=== PATIENT | male | born 1965 | race Caucasian/White ===

== ENCOUNTER 2024-02-13 11:34 | Observation (INO) ==
[2024-02-13 12:17] LABS: Basophils # (auto) 0.05 K/uL (0.00-0.20); Basophils % (auto) 0.6 %; Eosinophils # (auto) 0.09 K/uL (0.00-0.50); Eosinophils % (auto) 1.1 %; Hematocrit (blood only) 48.3 % (42.0-52.0); Hemoglobin 16.5 g/dl (14.0-18.0); Immature Granulocytes # (auto) 0.04 K/uL (0.01-0.20); Immature Granulocytes % (auto) 0.5 %; Lymphocytes # (auto) 1.01 K/uL (1.20-3.40); Lymphocytes % (auto) 12.3 %; Mean Corpuscular Hemoglobin 29.6 pg (25.0-34.0); Mean Corpuscular Hgb Conc 34.2 g/dL (32.0-36.0); Mean Corpuscular Volume 86.7 fL (80.0-100.0); Mean Platelet Volume 12.6 fL (9.4-12.4); Monocytes # (auto) 0.67 K/uL (0.11-0.59); Monocytes % (auto) 8.2 %; Neutrophils # (auto) 6.34 K/uL (1.40-6.50); Neutrophils % (auto) 77.3 %; Platelet Count 179 K/uL (130-400); RDW Coefficient of Variation 12.6 % (11.5-14.5); RDW Standard Deviation 39.6 fL (36.4-46.3); Red Blood Count 5.57 M/uL (4.70-6.10)
[2024-02-13 12:32] LABS: Albumin Globulin Ratio 1.7 (0.9-2); BUN Creatinine Ratio 16.5 (10-20); Bilirubin,Total 0.9 mg/dl (0.2-1.0); Calcium 10.2 mg/dl (8.6-10.3); Creatinine Clr Calc Pharmacy 119.8 ml/min; Est GFR (African American) 106.5 ml/min; Est GFR (Non-African American) 91.9 ml/min
--- NOTE | 2024-02-13 12:41 | XRay Report ---
XR chest 1V not portable CLINICAL HISTORY: Chest pain, nonspecific COMPARISON STUDY: Chest radiograph January 27, 2024. FINDINGS: Lung volumes are normal. Lungs are clear. There is no pneumothorax or pleural effusion. Car diac size is stable. Mediastinal contours are normal. There is no evidence for pulmonary edema. IMPRESSION: No acute cardiopulmonary findings. ACT 112: Negative or not required by law. Electronically signed by: Frandy Mccrary M.D. 02/13/2024 12:40 PM
[2024-02-13 12:44] LABS: Partial Thromboplastin Time 29 Seconds (21-31); Prothrombin Time 10.9 Seconds (9.0-12.0)
--- NOTE | 2024-02-13 12:46 | Emergency Department Note ---
Impression & Plan Precordial chest pain, Hypertension, Elevated troponin ED Provider Note NAME: MAYLIN PINO AGE: 58 SEX: M : 1965 ARRIVES VIA: Walk-In INFORMANT: [Patient] ED PROVIDER(S): [Manoj Garner MD] CHIEF COMPLAINT: Chest pain HISTORY OF PRESENT ILLNESS: The patient is a 58-year-old male presents to the ER with central chest pain moving to his back. The pain has been present constantly for 2 hours. Patient states that he had a lot of coughing for a month or 2 (October into November). Ever since then, he has had some intermittent pain across the chest but it just seemed to come and go. Sometimes the pain is worse to take a breath, sometimes the pain is worse with movement, sometimes the pain is worse with activity/exertion. The patient states that today, the pain has been present for 2 hours and will not go away. It has been fairly severe today. It started as he was doing some outside work. He feels short of breath. The pain radiates to the back and may be his neck. He was sweating. He was concerned so he presents to the ER for evaluation. He states that he has had some issues with his breathing as well since . He tried an albuterol inhaler for a while which did not seem to help. He had pulmonary function testing done just 1 week ago. He does not know the results. Of note as per the [facility] records, pulmonary function testing from a week ago was essentially unremarkable. PMHx/PSHx/Social Hx: See Below PHYSICAL EXAM: GENERAL: Patient is in no acute distress. HEENT: No acute trauma, normocephalic atraumatic, mucous membranes moist, no nasal congestion. NECK: No stridor, no adenopathy, no meningismus, trachea is midline. LUNGS: Clear to auscultation bilaterally, no wheeze, no rhonchi, breath sounds equal. HEART: Without murmurs gallops or rubs, regular rate and rhythm. Chest: Tender across the anterior sternal chest wall. ABDOMEN: Soft, mildly tender in the epigastrium, no distention or peritonitis. EXTREMITIES: No cyanosis, full range of motion of all the joints without pain or difficulty. NEUROLOGIC: Oriented x 3, no acute motor or sensory deficits, no focal weakness. SKIN: No jaundice, no diaphoresis. DIFFERENTIAL DIAGNOSIS: Musculoskeletal pain, pneumonia, pneumothorax, mediastinal air, aortic dissection, PE, GA, among others. EMERGENCY DEPARTMENT PROCEDURES: MEDICAL DECISION MAKING: There is no leukocytosis or concerning anemia. There is a normal platelet count. No coagulopathy. No renal failure or significant electrolyte abnormality. There were a few subtle liver enzyme elevations however, the bilirubin was normal. ECG showed a normal sinus rhythm, no ST elevation. Repeat ECG showed the same findings. Cardiac troponin was somewhat elevated, this troponin elevation could be consistent with cardiac injury. Chest film does not show mediastinal widening, pneumonia or pneumothorax. Chest CT did not show PE or evidence for aortic dissection. The patient presents with chest pain which has been ongoing for sometime. He did have some reproducible chest pain with palpation consistent with musculoskeletal discomfort. The patient also complained of some exertional chest pain with some associated shortness of breath. He does carry cardiac risk factors. Patient was given oral aspirin, he was given nitroglycerin paste. He received IV morphine and IV Zofran. He was given IV Toradol. Patient feels improved with this treatment and his blood pressure has also improved. The patient presents with chest discomfort which has been ongoing for months. He is being worked up as an outpatient. With his worsening complaints today, with his troponin elevation, I do believe he requires hospitalization and further cardiac workup. I spoke with the patient and case management, the on-call hospitalist was consulted. Prior/Outside records/notes reviewed: Pulmonary function test results dictated on 02/12/2024 describing essentially normal lung function ECG per my interpretation: Indication was chest pain. The ECG shows a normal sinus rhythm with some sinus arrhythmia. The rate is 81. There is an inverted T wave in lead III. There is no acute ST elevation, no PVCs. Repeat ECG per my interpretation: Indication was chest pain. The ECG shows a normal sinus rhythm with a rate of 74. There is an inverted T wave in lead III. There is no acute ST elevation, no PVCs. The QTc is 439. Compared to the ECG from earlier today, there is no significant change. Continuous Cardiac Monitoring per my interpretation: An order was placed for continuous cardiac monitoring. The monitor shows a rate of 79 with normal sinus rhythm. Imaging/x-ray results per my interpretation: Chest x-ray does not show mediastinal widening, pneumonia or pneumothorax. Chronic Medical/Social conditions affecting care: Care/Management discussed with: Case management, the on-call hospitalist. Level of care consideration(s): After review of the information above and other included data: --I believe the patient requires escalation of care to admission DISPOSITION: Admission with cardiology consult Past Med/Surg History Medical History Hospital discharge follow-up History of COVID-19 approx 4 mo ago - [facility]; congestion, cough, sob, fatigue; c/o ongoing sob PONV (postoperative nausea and vomiting) Slow to wake up after anesthesia History of gout Osteoarthritis Fatty liver History of colon polyps [place] (hard of hearing) HTN (hypertension) History of pulmonary embolism >10 years ago - unk etiology Snores Hypertension Near syncope Left shoulder pain Surgical History History of arthroscopy of left knee History of arthroscopy of right knee History of colonoscopy Family History Father Bone cancer Myocardial infarction Mother History of knee surgery Grandfather (Paternal) Myocardial infarction Brother Skin cancer Other No family history of adverse response to anesthesia Denies family history of Ovarian cancer Prostate cancer Breast cancer Colorectal cancer Social History Smoking Status: Former smoker Tobacco Type: Cigarettes packs per day: 1; Second Hand Exposure: No; Do You Dip or Chew Tobacco: No; Hx Alcohol Use: No Hx Substance Use: No Preferred Language: Mohawk Communication Ability: Effective Visual Impairment: No Limitations Hearing Ability: Normal Drilling Engineer Required: No Beliefs That Will Affect Care: None marital status: Current Living Situation: Spouse current occupational status: employed How many Children do You have: 3 Other Information That Helps Us Care for You: No Feels Safe at Home: Yes Safety Concerns: Feels Safe At This Time Childhood Exposure to Second-Hand Smoke: No caffeine: Yes Dental Care, Regularly: Yes Seatbelt Use: always Sunscreen Use: No Assistive Devices: None Allergies Allergies Allergy/AdvReac Type Severity Reaction Status Date / Time nifedipine Allergy Severe Flushing Verified 02/10/24 15:22 lisinopril AdvReac Mild Cough Verified 01/27/24 11:37 Home Meds Home Medications Medication Instructions Recorded Confirmed aspirin 81 mg tablet,delayed 81 mg PO DAILY 10/02/22 02/13/24 release (Adult Low Dose Aspirin) ibuprofen See Rx Instructions .Route 02/13/24 02/13/24 .COMPLEX PRN Pain losartan 100 1 tab PO HS 02/13/24 02/13/24 mg-hydrochlorothiazide 25 mg tablet Results & Data (ED) Vital Signs Vital Signs - 24 hr 02/13/24 11:43 02/13/24 11:43 02/13/24 12:22 Temperature 36.7 C Temperature Source Temporal Artery Scan Pulse Rate 92 H Pulse Rate [Apical] Pulse Rhythm [Apical] Pulse Strength [Apical] Respiratory Rate 19 Respiratory Effort / Characteristics SOB on Exertion Respiratory Depth Respiratory Pattern Blood Pressure 142/107 H Blood Pressure [Right Arm] Blood Pressure Mean 118 Blood Pressure Mean [Right Arm] Blood Pressure Position [Right Arm] Pulse Oximetry 97 96 Oxygen Delivery Method Room Air Room Air Sepsis Recent Fever Within 48 Hours No Sepsis New/Unexplained Change in Mental Status N/A Sepsis Action Taken by Nursing No Action Required 02/13/24 12:22 02/13/24 12:27 02/13/24 14:43 Temperature Temperature Source Pulse Rate 79 Pulse Rate [Apical] 82 70 Pulse Rhythm [Apical] Regular Regular Pulse Strength [Apical] Normal Normal Respiratory Rate 17 17 Respiratory Effort / Characteristics Non-Labored Spontaneous Non-Labored Spontaneous Respiratory Depth Normal Normal Respiratory Pattern Regular Regular Blood Pressure Blood Pressure [Right Arm] 125/85 Blood Pressure Mean Blood Pressure Mean [Right Arm] 98 Blood Pressure Position [Right Arm] Semi-fowlers Pulse Oximetry 97 97 Oxygen Delivery Method Room Air Room Air Sepsis Recent Fever Within 48 Hours Sepsis New/Unexplained Change in Mental Status Sepsis Action Taken by [facility]dc Medications Current Medication List: was personally reviewed by me Laboratory Data Attestation: I reviewed the patient's lab results. 02/13/24 11:55 02/13/24 11:55 Lab Results 02/13/24 02/13/24 Range/Units 11:55 14:10 WBC 8.20 (4.8-10.8) K/ul RBC 5.57 (4.70-6.10) M/uL Hgb 16.5 (14.0-18.0) g/dl Hct 48.3 (42.0-52.0) % MCV 86.7 (80.0-100.0) fL MCH 29.6 (25.0-34.0) pg MCHC 34.2 (32.0-36.0) g/dL RDW Std Deviation 39.6 (36.4-46.3) fL RDW Coeff of Giorgi 12.6 (11.5-14.5) % Plt Count 179 (130-400) K/uL MPV 12.6 H (9.4-12.4) fL Immature Gran % (Auto) 0.5 % Neut % (Auto) 77.3 % Lymph % (Auto) 12.3 % [place] % (Auto) 8.2 % Eos % (Auto) 1.1 % Baso % (Auto) 0.6 % Neut # (Auto) 6.34 (1.40-6.50) K/uL Lymph # (Auto) 1.01 L (1.20-3.40) K/uL [place] # (Auto) 0.67 H (0.11-0.59) K/uL Eos # (Auto) 0.09 (0.00-0.50) K/uL Baso # (Auto) 0.05 (0.00-0.20) K/uL Immature Gran # (Auto) 0.04 (0.01-0.20) K/uL PT 10.9 (9.0-12.0) Seconds INR 1.0 (0.9-1.1) APTT 29 (21-31) Seconds PTT Ratio 1.0 Sodium 136 (136-145) mmol/L Potassium 4.0 (3.5-5.1) mmol/L Chloride 100 (98-107) mmol/L Carbon Dioxide 27 (21-32) mmol/L Anion Gap 9 (3-11) BUN 15 (6-23) mg/dl Creatinine 0.91 (0.6-1.4) mg/dl Est Cr Clr Drug Dosing 119.8 ml/min Est GFR ( Amer) 106.5 ml/min Est GFR (Non-Af Amer) 91.9 ml/min BUN/Creatinine Ratio 16.5 (10-20) Glucose 107 H (70-99(Fasting)) mg/dl Calcium 10.2 (8.6-10.3) mg/dl Magnesium 1.9 (1.7-2.4) mg/dl Total Bilirubin 0.9 (0.2-1.0) mg/dl AST 48 H (13-39) U/L ALT 101 H (7-52) U/L Alkaline Phosphatase 50 (34-104) U/L Troponin I High Sens 99.1 H* 553.1 H* D (0-20) pg/ml Total Protein 8.0 (6.0-8.3) gm/dl Albumin 5.0 (3.4-5.0) gm/dl Globulin 3.0 (2.5-4.0) gm/dl Albumin/Globulin Ratio 1.7 (0.9-2) Administered Medications Heparin Sodium/Dextrose (Heparin Sodium/Dextrose) 25,000 units in 500 mls @ 20 mls/hr IV .Q24H [facility]; Protocol Stop: 03/14/24 15:14 Last Admin: 02/13/24 15:54 Dose: 1,000 units/hr, 20 mls/hr Documented By: SHERRIE Co-signed By: JONO Discontinued Medications Aspirin (Aspirin Chew 324 Mg) 324 mg PO NOW STA Stop: 02/13/24 12:51 Last Admin: 02/13/24 12:56 Dose: 324 mg Documented By: MANI Heparin Sodium (Porcine) (Heparin Ivp From [facility] Protocol (With Bolus)) 4,000 units IV NOW ONE Stop: 02/13/24 15:46 Last Admin: 02/13/24 15:56 Dose: 4,000 units Documented By: SHERRIE Co-signed By: JONO Heparin Sodium/Dextrose (Heparin Iv Adult Wt-Based Low-Dose W/ Initial Bolus Protocol) 1 each IV NOW STA; Protocol Stop: 02/13/24 14:52 Last Admin: 02/13/24 15:56 Dose: 1 each Documented By: SHERRIE Magnesium Sulfate/Dextrose (Magnesium Sulfate / D5w) 1 gm in 100 mls @ 50 mls/hr IV ONE ONE Stop: 02/13/24 17:58 Last Admin: 02/13/24 18:28 Dose: 50 mls/hr Documented By: KACI Ioversol (Optiray 320 125ml) 119 ml IV ONCE ONE Stop: 02/13/24 13:04 Last Admin: 02/13/24 13:03 Dose: 119 ml Documented By: CHANCE Ketorolac Tromethamine (Ketorolac Tromethamine 15 Mg/Ml Vial) 10 mg IV NOW ONE Stop: 02/13/24 12:34 Last Admin: 02/13/24 12:48 Dose: 10 mg Documented By: MANI Morphine Sulfate (Morphine Sulfate 4 Mg/Ml 1 Ml Carp\Vial) 4 mg IV NOW STA Stop: 02/13/24 12:34 Last Admin: 02/13/24 12:48 Dose: 4 mg Documented By: MANI Nitroglycerin (Nitroglycerin 2% Ointment 30gm Tube) 1 inch EXT NOW STA Stop: 02/13/24 12:51 Last Admin: 02/13/24 12:54 Dose: 1 inch Documented By: MANI Ondansetron HCl (Ondansetron Inj 2 Mg/Ml 2 Ml Vial) 4 mg IV NOW STA Stop: 02/13/24 12:34 Last Admin: 02/13/24 12:48 Dose: 4 mg Documented By: MANI Imaging Data Radiologist's Impression: Chest X-Ray 02/13/24 11:48 XR chest 1V not portable CLINICAL HISTORY: Chest pain, nonspecific COMPARISON STUDY: Chest radiograph January 27, 2024. FINDINGS: Lung volumes are normal. Lungs are clear. There is no pneumothorax or pleural effusion. Cardiac size is stable. Mediastinal contours are normal. There is no evidence for pulmonary edema. IMPRESSION: No acute cardiopulmonary findings. ACT 112: Negative or not required by law. Electronically signed by: Frandy Mccrary M.D. 02/13/2024 12:40 PM Chest CTA 02/13/24 12:33 CT ANGIOGRAPHY OF THE CHEST DISSECTION PROTOCOL CLINICAL HISTORY: Chest pain radiating to back. Evaluate for aortic dissection. COMPARISON STUDY: Chest radiographs January 19, 2024 and February 13, 2024. TECHNIQUE: Before and following the IV administration of 119 mL of Optiray, helical axial images of the chest were obtained. Maximal intensity projections and sagittal and coronal reformats were viewed on an independent 3D workstation. IV contrast was administered without complication. Automated exposure control was utilized for the study. A dose lowering technique was utilized adhering to the principles of ALARA. CT DOSE: 1989.37 mGy.cm FINDINGS: The caliber of the thoracic aorta is normal. There is no intramural hematoma or thoracic aortic dissection. There is extensive coronary artery calcification. There is no pericardial effusion. Borderline cardiomegaly. No pneumothorax or pleural effusion is present. There is no consolidation to suggest pneumonia. Multiple solid noncalcified pulmonary nodules are noted. The largest is a 7 mm left lower lobe nodule on image 147 of 253 and a 7 mm subpleural right middle lobe nodule on image 166. No acute fractures within the bony thorax are noted. Visualized portions of the upper abdomen are unremarkable. IMPRESSION: 1. No thoracic aortic dissection. No pulmonary emboli. No acute intrathoracic findings. 3. Mild cardiomegaly. Extensive coronary artery calcification. 3. Several noncalcified pulmonary nodules measuring up to 7 mm. These are likely benign. A follow up chest CT in 6 months to ensure stability is recommended. ACT 112: Negative or not required by law. Electronically signed by: Frandy Mccrary M.D. 02/13/2024 1:19 PM Discharge Plan Visit Data Chief Complaint: Chest Pain Stated Complaint: CHEST PAIN, LUNG PAIN, NECK PAIN ED Provider: Manoj Garner Discharge Problem: Precordial chest pain, Hypertension, Elevated troponin Patient Disposition: Admitted As Inpatient Condition: Fair Discharge Instructions Interventions: ED Discharge Assessment Last Done: 02/13/24 16:16 Discharge Problem: Hypertension Qualifiers: Hypertension type: unspecified Qualified Code(s): I10 - Essential (primary) hypertension
[2024-02-13] MEDS: ONDANSETRON INJ 2 MG/ML 2 ML VIAL IV STA (12:48)
[2024-02-13] MEDS: KETOROLAC TROMETHAMINE 15 MG/ML VIAL IV ONE (12:48)
[2024-02-13] MEDS: MoRPHine SULFATE 4 MG/ML 1 ML CARP\\VIAL IV STA (12:48)
[2024-02-13 12:49] LABS: Troponin I High Sensitivity 99.1 pg/ml (0-20)
[2024-02-13] MEDS: NITROGLYCERIN 2% OINTMENT 30GM TUBE EXT STA (12:54)
[2024-02-13] MEDS: ASPIRIN CHEW 324 MG PO STA (12:56)
[2024-02-13] MEDS: OPTIRAY 320 125ml IV ONE (13:03)
--- NOTE | 2024-02-13 13:21 | CT Scan Report ---
CT ANGIOGRAPHY OF THE CHEST DISSECTION PROTOCOL CLINICAL HISTORY: Chest pain radiating to back. Evaluate for aortic dissection. COMPARISON STUDY: Chest radiographs January 19, 2024 and February 13, 2024. TECHNIQUE: Before and following the IV administration of 119 mL of Optiray, helical axial images of t he chest were obtained. Maximal intensity projections and sagittal and coronal reformats were viewed on an independent 3D workstation. IV contrast was administered without complication. Automated exp osure control was utilized for the study. A dose lowering technique was utilized adhering to the [facility] [place]. CT DOSE: 1989.37 mGy.cm FINDINGS: The caliber of the thoracic aorta is normal. There is no intramural hematoma or thoracic a ortic dissection. There is extensive coronary artery calcification. There is no pericardial effusion. Borderline cardiomegaly. No pneumothorax or pleural effusion is present. There is no consolidation t o suggest pneumonia. Multiple solid noncalcified pulmonary nodules are noted. The largest is a 7 mm l eft lower lobe nodule on image 147 of 253 and a 7 mm subpleural right middle lobe nodule on image 166 . No acute fractures within the bony thorax are noted. Visualized portions of the upper abdomen are u nremarkable. IMPRESSION: 1. No thoracic aortic dissection. No pulmonary emboli. No acute intrathoracic findings. 3. Mild cardiomegaly. Extensive coronary artery calcification. 3. Several noncalcified pulmonary nodules measuring up to 7 mm. These are likely benign. A follow up chest CT in 6 months to ensure stability is recommended. ACT 112: Negative or not required by law. Electronically signed by: Frandy Mccrary M.D. 02/13/2024 1:19 PM
--- NOTE | 2024-02-13 13:41 | Electrocardiogram Report ---
Test Reason : Blood Pressure : / mmHG Vent. Rate : 081 BPM Atrial Rate : 081 BPM P-R Int : 154 ms QRS Dur : 106 ms QT Int : 378 ms P-R-T Axes : 053 -36 001 degrees QTc Int : 439 ms Normal sinus rhythm with sinus arrhythmia Left axis deviation Abnormal ECG When compared with ECG of 05-NOV-2011 06:55, No significant change was found Confirmed by Aryan Walker ([id number]) on 02/13/2024 1:41:12 PM Referred By: Confirmed By:Aryan Walker
--- NOTE | 2024-02-13 14:07 | History & Physical Report ---
Date of Service February 13, 2024 History of Present Illness Primary Care Provider: Lo Jose MD Allergies Allergy/AdvReac Type Severity Reaction Status Date / Time nifedipine Allergy Severe Flushing Verified 02/10/24 15:22 lisinopril AdvReac Mild Cough Verified 01/27/24 11:37 Home Medications Medication Instructions Recorded Confirmed Type aspirin 81 mg tablet,delayed 81 mg PO DAILY 10/02/22 01/27/24 History release (Adult Low Dose Aspirin) losartan 100 mg tablet 100 mg PO QAM #90 tabs 02/11/23 01/27/24 Rx albuterol sulfate 90 mcg/actuation 2 puff inhalation Q6H PRN 11/13/23 01/27/24 Rx aerosol inhaler shortness of breath or wheezing #6.7 grams Past Med/Surg History Medical History (Updated 02/13/24 @ 14:[address] PA-C) Hospital discharge follow-up History of COVID-19 approx 4 mo ago - [facility] [place] [facility]; congestion, cough, sob, fatigue; c/o ongoing sob PONV (postoperative nausea and vomiting) Slow to wake up after anesthesia History of gout Osteoarthritis Fatty liver History of colon polyps [place] (hard of hearing) HTN (hypertension) History of pulmonary embolism >10 years ago - unk etiology Snores Hypertension Near syncope Left shoulder pain Surgical History History of arthroscopy of left knee History of arthroscopy of right knee History of colonoscopy Family History Father Bone cancer Myocardial infarction Mother History of knee surgery Grandfather (Paternal) Myocardial infarction Brother Skin cancer Other No family history of adverse response to anesthesia Denies family history of Ovarian cancer Prostate cancer Breast cancer Colorectal cancer Social History (Updated 01/27/24 @ 11:42 by Nima Betts) Smoking Status: Former smoker Tobacco Type: Cigarettes packs per day: 1; Second Hand Exposure: No; Do You Dip or Chew Tobacco: No; Hx Alcohol Use: Yes Hx Substance Use: No Preferred Language: Occitan Communication Ability: Effective Visual Impairment: No Limitations Hearing Ability: Normal Rv Repair Technician Required: No Beliefs That Will Affect Care: None marital status: Current Living Situation: Spouse current occupational status: employed How many Children do You have: 3 Feels Safe at Home: Yes Childhood Exposure to Second-Hand Smoke: No caffeine: Yes Dental Care, Regularly: Yes Seatbelt Use: always Sunscreen Use: No Assistive Devices: None Results & Data Results & Data Vital Signs (Past 12 Hours) Vital Signs Temp Pulse Pulse Resp BP Pulse Ox O2 Del Method 02/13/24 12:27 79 02/13/24 12:22 82 17 97 Room Air 02/13/24 12:22 96 Room Air 02/13/24 11:43 36.7 C 92 H 19 142/107 H 97 Room Air Supervising Physician Co-Signing Physician Notes Patient seen and examined, chart reviewed, case discussed with Ashu Lane and I agree with the assessment and plan as above except as otherwise noted Labs and images reviewed Deniz Johnson is a 58-year-old male who presents to the ER with chest pain radiating to his back. CTA shows no aortic dissection, no evidence of PE, mild cardiomegaly with extensive coronary calcifications. Noncalcified pulmonary nodules likely benign are noted but which will require 6-month follow-up. EKG on admission shows normal sinus rhythm with no territorial ST depression/elevations, no territorial T wave changes, and a concordant T wave inversion in lead III. Initial high sensitive troponin is 99.1. Chest x-ray is with no acute findings. Patient pain was onset approximately 2 hours prior to E R arrival. Previous this has had intermittent pain for around 2 months with some associated shortness of breath, pain today has been persistent and has not improved causing him to present to the ER. Deniz received aspirin full dose and nitro paste while in the ER. PG Care Time/CCT Total # of Minutes Spent Total Time Spent with Patient: Total time spent is greater than 50% in coordination of care (as documented) at patient's floor/unit and/or counseling patient: Coding
--- NOTE | 2024-02-13 14:09 | History & Physical Report ---
Date of Service February 13, 2024 Assessment & Plan (1) Chest pain: Plan: Ripping, substernal chest pain radiating to back, and worsening SOB that developed for 2-3 hours while working outside on 02/12 Hx of pulmonary embolism Chest CTA revealed no pulmonary emboli or thoracic aortic dissection; extensive coronary artery calcification Patient has a coronary CT scan scheduled in March 2024 for calcium score EKG revealed NSR at 81 bpm; QTc 439 ASA given in the ED Troponin elevated at 99-->553 on arrival Trend troponin q6h x 2 EKG as needed for chest pain Continuous telemetry monitoring Continue heparin IV Negative exercise stress echo for ischemia in June 2021 Cardiology consulted; probable catheterization on 02/13 or 02/14 Continue aspirin 81 mg daily Nitro 0.4 mg SL x 3 max doses as needed for recurrence of severe chest pain A.m. CBC, BMP, Mag, Fasting lipid panel (2) Shortness of breath: Plan: Intermittent SOB both at rest and with exertion Former tobacco cigarette smoker; 0.5 PPD for 10y; quit 12 years ago PFT results on 02/12/2024 revealed no obstructive lung dysfunction (3) Hypertension: Plan: Continue losartanHCTZ Patient did not tolerate nifedipine in the past (flushing/swelling); denies ever being tried on a beta-micheal (4) Sleep apnea: Plan: Did not tolerate CPAP Plan Disposition: Obs - Admit to PCU telemetry Full code AHA, low-sodium diet VTE PPx: Low-dose heparin with bolus started in the ED History of Present Illness Chief Complaint: Chest pain Primary Care Provider: Lo Jose MD Deniz is a 58-year-old male with PMH of HTN, sleep apnea, and plantar fasciitis. He presented for "ripping" sternal chest pain x 2-3 hours that developed while working outside on 02/12. Patient notes that he was dragging branches outside of discharge, when the pain came on gradually, but then became unbearable. Radiation to the left shoulder and jaw. Numbness and tingling down the left arm. Patient reports profuse sweating so bad that he "soaked his shirt". Became pale. He felt like his "chest cavity was breaking open". After sitting down, the pain eventually alleviated. Also alleviated by morphine and Nitro-Bid in the ED. Patient reports this has been an ongoing issue over the past couple months, and he is unable to tell if it is strictly at rest versus with exertion. He also notes that he has been having SOB both at rest and with exertion. Patient had PFTs done 1 week ago with results pending; former tobacco cigarette smoker but quit 12 years ago. Of note, the patient also endorses "burning with breathing", which he attributes to potential acid reflux. Worse when being out in the cold he was supposed to start on Pepcid but has not done so yet. Last stress test was 1 year ago. Patient follows with Dr. Umesh Lopez at [facility] cardiology. He reports that he has been taking his los artanHCTZ regularly, and that he was recently tried on nifedipine 60 mg starting on , but only took 2 days of it as it caused him to swell up and flushing. He also notes that he ran out of his aspirin 81 mg 2 days ago, and has not been taking it the past 2 days. No other change in medications. He was post to have a coronary CT scan for calcium score in March 2024. Family history of cardiac disease; father had SC and quadruple bypass in his 60s. No personal history of SC, or CVA, but he does report he had a PE in the past; unclear if it was provoked or unprovoked; not currently on blood thinners. Patient is hypertensive at 142/107 at time of admission; vitals otherwise stable. Chest pain-free at time of admission; not reproducible to palpation. ED course: Morphine 4 mg IV Toradol 10 mg IV Zofran 4 mg IV Aspirin 324 mg p.o. Nitro-Bid 2% 1 inch ROS: Patient endorses intermittent chest pain, numbness/tingling going down the left arm, tightness in jaw and left shoulder, dizziness/lightheadedness, blurry vision x 2 in the past month, pleuritic CP, productive cough and dry cough, hemoptysis (always while brushing teeth x 3-4 episodes), and nausea from pain. Patient denies fever, chills, night-sweats, [place], chest palpitations, abdominal pain, vomiting, diarrhea, urinary s/s, burning with urination, blood in the urine/stool, and N/T in legs. Allergies Allergy/AdvReac Type Severity Reaction Status Date / Time nifedipine Allergy Severe Flushing Verified 02/10/24 15:22 lisinopril AdvReac Mild Cough Verified 01/27/24 11:37 Home Medications Medication Instructions Recorded Confirmed Type aspirin 81 mg tablet,delayed 81 mg PO DAILY 10/02/22 02/13/24 History release (Adult Low Dose Aspirin) ibuprofen See Rx Instructions .Route 02/13/24 02/13/24 History .COMPLEX PRN Pain losartan 100 1 tab PO HS 02/13/24 02/13/24 History mg-hydrochlorothiazide 25 mg tablet Past Med/Surg History Medical History (Updated 02/13/24 @ 14:05 by FRED RestrepoC) Hospital discharge follow-up History of COVID-19 approx 4 mo ago - [facility]gent [facility] [place]; congestion, cough, sob, fatigue; c/o ongoing sob PONV (postoperative nausea and vomiting) Slow to wake up after anesthesia History of gout Osteoarthritis Fatty liver History of colon polyps [place] (hard of hearing) HTN (hypertension) History of pulmonary embolism >10 years ago - unk etiology Snores Hypertension Near syncope Left shoulder pain Surgical History History of arthroscopy of left knee History of arthroscopy of right knee History of colonoscopy Family History Father Bone cancer Myocardial infarction Mother History of knee surgery Grandfather (Paternal) Myocardial infarction Brother Skin cancer Other No family history of adverse response to anesthesia Denies family history of Ovarian cancer Prostate cancer Breast cancer Colorectal cancer Social History (Updated 01/27/24 @ 11:42 by Nima Betts) Smoking Status: Former smoker Tobacco Type: Cigarettes packs per day: 1; Second Hand Exposure: No; Do You Dip or Chew Tobacco: No; Hx Alcohol Use: Yes Hx Substance Use: No Preferred Language: Prydeinig Communication Ability: Effective Visual Impairment: No Limitations Hearing Ability: Normal Contact Lens Blocker Required: No Beliefs That Will Affect Care: None marital status: Current Living Situation: Spouse current occupational status: employed How many Children do You have: 3 Feels Safe at Home: Yes Childhood Exposure to Second-Hand Smoke: No caffeine: Yes Dental Care, Regularly: Yes Seatbelt Use: always Sunscreen Use: No Assistive Devices: None Review of Systems Review of Systems: See HPI above Physical Exam Physical Exam: General: no acute distress; pleasant affect; non-toxic appearing; well- nourished; cooperative HEENT: normocephalic, atraumatic; no scleral icterus; PERRLA; vision and hearing grossly intact Neck: supple; negative for JVD; no lymphadenopathy; trachea midline Skin: warm, dry without signs of tenting; no cyanosis; no rashes, bruising, lesions, or erythema noted on the abdomen, chest wall, or back CV: chest wall NTP; left-sided chest wall and upper back between shoulder blades NTP; RRR; S1/S2 normal; pulses intact and symmetric at radial, DP, and PT Lungs: no acute respiratory distress; symmetrical chest wall expansion; clear breath sounds across all lung laura w/o adventitious sounds; no wheezing ABD: Soft, NTP; BS present; no rebound/guarding MSK: no tics or fasciculations; no edema noted in the LEs b/l, nonerythematous Neuro: A&Ox3; normal mood and affect; fluent speech; no focal deficits; sensation grossly intact in the LEs b/l Results & Data Results & Data Vital Signs (Past 12 Hours) Vital Signs Temp Pulse Pulse Resp BP Pulse Ox O2 Del Method 02/13/24 12:27 79 02/13/24 12:22 82 17 97 Room Air 02/13/24 12:22 96 Room Air 02/13/24 11:43 36.7 C 92 H 19 142/107 H 97 Room Air Laboratory Results Abnormal lab results 02/13/24 Range/Units 11:55 MPV 12.6 H (9.4-12.4) fL Lymph # (Auto) 1.01 L (1.20-3.40) K/uL [place] # (Auto) 0.67 H (0.11-0.59) K/uL Glucose 107 H (70-99(Fasting)) mg/dl AST 48 H (13-39) U/L ALT 101 H (7-52) U/L Troponin I High Sens 99.1 H* (0-20) pg/ml Diagnostic Findings Chest X-Ray 02/13/24 11:48 XR chest 1V not portable CLINICAL HISTORY: Chest pain, nonspecific COMPARISON STUDY: Chest radiograph January 27, 2024. FINDINGS: Lung volumes are normal. Lungs are clear. There is no pneumothorax or pleural effusion. Cardiac size is stable. Mediastinal contours are normal. There is no evidence for pulmonary edema. IMPRESSION: No acute cardiopulmonary findings. ACT 112: Negative or not required by law. Electronically signed by: Frandy Mccrary M.D. 02/13/2024 12:40 PM Chest CTA 02/13/24 12:33 CT ANGIOGRAPHY OF THE CHEST DISSECTION PROTOCOL CLINICAL HISTORY: Chest pain radiating to back. Evaluate for aortic dissection. COMPARISON STUDY: Chest radiographs January 19, 2024 and February 13, 2024. TECHNIQUE: Before and following the IV administration of 119 mL of Optiray, helical axial images of the chest were obtained. Maximal intensity projections and sagittal and coronal reformats were viewed on an independent 3D workstation. IV contrast was administered without complication. Automated exposure control was utilized for the study. A dose lowering technique was utilized adhering to the principles of ALARA. CT DOSE: 1989.37 mGy.cm FINDINGS: The caliber of the thoracic aorta is normal. There is no intramural hematoma or thoracic aortic dissection. There is extensive coronary artery calcification. There is no pericardial effusion. Borderline cardiomegaly. No pneumothorax or pleural effusion is present. There is no consolidation to suggest pneumonia. Multiple solid noncalcified pulmonary nodules are noted. The largest is a 7 mm left lower lobe nodule on image 147 of 253 and a 7 mm subpleural right middle lobe nodule on image 166. No acute fractures within the bony thorax are noted. Visualized portions of the upper abdomen are unremarkable. IMPRESSION: 1. No thoracic aortic dissection. No pulmonary emboli. No acute intrathoracic findings. 3. Mild cardiomegaly. Extensive coronary artery calcification. 3. Several noncalcified pulmonary nodules measuring up to 7 mm. These are likely benign. A follow up chest CT in 6 months to ensure stability is recommended. ACT 112: Negative or not required by law. Electronically signed by: Frandy Mccrary M.D. 02/13/2024 1:19 PM Code Status & VTE Plan Code Status Full code VTE Prophylaxis Plan VTE Prophylaxis will be ordered: Yes Supervising Physician Co-Signing Physician Notes Patient seen and examined, chart reviewed, case discussed with Ashu Lane and I agree with the assessment and plan as above except as otherwise noted Labs and images reviewed Deniz Johnson is a 58-year-old male who presents to the ER with chest pain radiating to his back. EKG on admission shows normal sinus rhythm with no territorial ST depression/elevations, no territorial T wave changes, and a concordant T wave inversion in lead III. Initial high sensitive troponin is 99.1. Chest x-ray is with no acute findings. Patient pain was onset approximately 2 hours prior to ER arrival. Previous this has had intermittent pain for around 2 months with some associated shortness of breath, pain today has been persistent and has not improved causing him to present to the ER. Deniz received aspirin full dose and nitro paste while in the ER. Patient was previously seen by [facility] cardiology for chest pain and dyspnea on exertion, was noted to have had a normal stress test 1 year prior. At time of assessment patient had not had any unstable angina, and had a stable echo without wall motion abnormality. Was recommended for serial echoes for dilated aortic root and tricuspid regurg. CT calcium score was ordered at that time, LDL 88. Last PFTs with no evidence of obstructive disease or air trapping, ratio 84%, FEV1 110% predicted, FVC 99% predicted. No bronchodilator change. At the bedside patient reports he has had progressive intermittent chest pain. He notes he has a chest pain of different qualities sometimes with burning through his stomach and epigastric, sometimes with tenderness to palpation, and sometimes the pain into his left chest and neck. Episode prior to admission was the most concerning as he was working at [employer] and had severe chest pain into his left chest, went to sit and rest and the development of soaking sweats and dyspnea. Patient does have significant calcifications on his CT, was pending a formal coronary calcium score next month. Given his progressive symptoms, intermittent symptoms at rest, now elevated troponin recommend patient be admitted for cardiac evaluation and potential catheterization. Cardiology consulted for? Cath versus stress. Patient is currently chest pain-free after aspirin, nitro, and morphine. If chest pain recurs or troponin has a exponential rise will heparinize at that time. Agree with assessment and management above. PG Care Time/CCT Total # of Minutes Spent Total Time Spent with Patient: Total time spent is greater than 50% in coordination of care (as documented) at patient's floor/unit and/or counseling patient: [place] [address] INT INP/OBS CARE 3/75MIN Patient Type New History Comprehensive Exam Comprehensive Medical Decision Making High Complexity Diagnoses Chest pain R07.9 Shortness of breath R06.02 Hypertension I10 Sleep apnea G47.30
[2024-02-13 14:47] LABS: Troponin I High Sensitivity 553.1 pg/ml (0-20)
[2024-02-13] MEDS ORDERED: HEPARIN SOD (PORCINE) 1000 UNIT/ML IV ONE (15:06)
[2024-02-13 15:46] LABS: Magnesium 1.9 mg/dl (1.7-2.4)
[2024-02-13] MEDS: HEPARIN SODIUM/DEXTROSE 25,000 UNITS/500 ML BAG IV SCH (15:54)
[2024-02-13] MEDS: Heparin IVP from UFH Protocol (WITH Bolus) IV ONE (15:56)
[2024-02-13] MEDS: Heparin IV Adult Wt-Based Low-Dose w/ INITIAL Bolus Protocol IV STA (15:56)
[2024-02-13] MEDS ORDERED: NITROGLYCERIN SL 0.4 MG/TAB TAB SL PRN (16:43)
[2024-02-13] MEDS ORDERED: ONDANSETRON INJ 2 MG/ML 2 ML VIAL IV PRN (16:43)
[2024-02-13] MEDS ORDERED: ACETAMINOPHEN 325 MG TAB PO PRN (16:43)
[2024-02-13] MEDS: MAGNESIUM SULFATE / D5W 1 GM/100 ML BAG IV ONE (18:28)
[2024-02-13] MEDS: LOSARTAN/HCTZ 50/12.5MG TAB PO SCH (20:23)
[2024-02-13 22:08] LABS: ANTI-Xa, UFH(UnfractionatedHep 0.14 IU/ml (0.3-0.7)
[2024-02-13] MEDS: HEPARIN IV BOLUS 4,000 UNITS in SYRINGE 0 ML IV ONE (22:38)
[2024-02-14 05:37] LABS: Basophils # (auto) 0.05 K/uL (0.00-0.20); Basophils % (auto) 0.7 %; Eosinophils # (auto) 0.29 K/uL (0.00-0.50); Eosinophils % (auto) 4.1 %; Hematocrit (blood only) 41.2 % (42.0-52.0); Hemoglobin 13.8 g/dl (14.0-18.0); Immature Granulocytes # (auto) 0.03 K/uL (0.01-0.20); Immature Granulocytes % (auto) 0.4 %; Lymphocytes # (auto) 1.23 K/uL (1.20-3.40); Lymphocytes % (auto) 17.4 %; Mean Corpuscular Hemoglobin 29.3 pg (25.0-34.0); Mean Corpuscular Hgb Conc 33.5 g/dL (32.0-36.0); Mean Corpuscular Volume 87.5 fL (80.0-100.0); Mean Platelet Volume 12.3 fL (9.4-12.4); Monocytes # (auto) 0.77 K/uL (0.11-0.59); Monocytes % (auto) 10.9 %; Neutrophils # (auto) 4.69 K/uL (1.40-6.50); Neutrophils % (auto) 66.5 %; Platelet Count 141 K/uL (130-400); RDW Coefficient of Variation 12.7 % (11.5-14.5); RDW Standard Deviation 40.9 fL (36.4-46.3); Red Blood Count 4.71 M/uL (4.70-6.10); White Blood Count 7.06 K/ul (4.8-10.8)
[2024-02-14 05:44] LABS: BUN Creatinine Ratio 22.1 (10-20); Calcium 8.8 mg/dl (8.6-10.3); Chol HDL Ratio 3.6 (0-5); Est GFR (African American) 90.7 ml/min; Est GFR (Non-African American) 78.2 ml/min; Potassium 4.2 mmol/L (3.5-5.1)
[2024-02-14 05:51] LABS: ANTI-Xa, UFH(UnfractionatedHep 0.24 IU/ml (0.3-0.7)
[2024-02-14] MEDS: ASPIRIN 81 MG ECTAB PO SCH (08:25)
--- NOTE | 2024-02-14 09:57 | Cardiology Consultation ---
Date of Consultation February 14, 2024 Assessment & Plan (1) NSTEMI (non-ST elevated myocardial infarction): (2) Hypertension: (3) Sleep apnea: Plan 1. NSTEMI: His symptoms are consistent with obstructive coronary disease. He had evidence of myocardial injury. Echocardiogram still pending at this point, but hopefully preserved LV systolic function. In any event, given his history and the objective findings I did recommend coronary angiography. I described the procedure and the attendant risks as well as the alternatives. Since he is currently pain-free and doing well will plan on proceeding electively tomorrow morning. Will continue the heparin infusion and a daily aspirin. Nitrates as needed. Beta-micheal deferred initially due to mild bradycardia, I think we can try some low-dose carvedilol. Will start atorvastatin as well. 2. Hypertension: Blood pressure currently well controlled. Apparently an adverse reaction to nifedipine in the past. I think we can continue his outpatient regimen of losartan and hydrochlorothiazide. 3. Sleep apnea: Untreated. Apparently he did not tolerate CPAP. Review of his outpatient record suggests some mildly elevated right-sided pressures likely due to a combination of obesity hypoventilation as well as obstructive sleep apnea. 4. Remote history of pulmonary embolus. None noted on his current CTA History of Present Illness Reason for Consultation: Chest pain, elevated troponin Requesting Physician: Domingo Attending Physician: Fred Galvan MD History of Present Illness The patient is a 58-year-old gentleman without a known history of cardiac disease who presented to the emergency room yesterday for symptoms of precordial chest, neck and left arm discomfort. The patient of the working fairly vigorously for approximately 1 hour yesterday afternoon. He states that at the beginning of activity he felt well but as he became progressively more active he began to experience the symptoms. He thought if he continued the activity he would be able to push through, but the symptoms became progressive. He eventually discontinued activity and sat in his truck. He was notably diaphoretic at that time. His symptoms improved enough that he went home but they recurred with more activity and he came to the emergency room for evaluation. Part of his description of the pain included a ripping sensation in the back. He underwent evaluation for pulmonary embolus and for aortic dissection. CT scan was negative for both problems. He was provided some medical therapy with relief of his symptoms. He was started on heparin infusion due to elevation in his cardiac biomarkers. The patient states that he has been having similar but less severe symptoms for approximately 1 month. Generally speaking they occur with activity but that may been some episodes at rest. He does have a very remote history of a pulmonary embolus which appears to have been unprovoked. However, he could not recall much in the way of symptoms as this occurred sometime ago. According to his who was present for the interview he does have occasional episodes of transient lightheadedness. These are also associated with twinges of chest pain which occur at rest. Very fleeting in nature. He is generally very active individual. 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 He generally does not have symptoms of dizziness, lightheadedness, chest pain or limiting dyspnea. No history of palpitation. No lower extremity edema. He does have history of sleep apnea which is untreated as he could not tolerate CPAP therapy. He apparently was evaluated in the hospital for chest pain over year ago. This prompted stress echocardiography which was reportedly normal. Allergies Allergy/AdvReac Type Severity Reaction Status Date / Time nifedipine Allergy Severe Flushing Verified 02/10/24 15:22 lisinopril AdvReac Mild Cough Verified 01/27/24 11:37 Home Medications Medication Instructions Recorded Confirmed Type aspirin 81 mg tablet,delayed 81 mg PO DAILY 10/02/22 02/13/24 History release (Adult Low Dose Aspirin) ibuprofen See Rx Instructions .Route 02/13/24 02/13/24 History .COMPLEX PRN Pain losartan 100 1 tab PO HS 02/13/24 02/13/24 History mg-hydrochlorothiazide 25 mg tablet Patient History Medical History (Updated 02/15/24 @ 00:03 by Fred Galvan MD) Hospital discharge follow-up History of COVID-19 approx 4 mo ago - Urgent [facility] [place]; congestion, cough, sob, fatigue; c/o ongoing sob PONV (postoperative nausea and vomiting) Slow to wake up after anesthesia History of gout Osteoarthritis Fatty liver History of colon polyps [place] (hard of hearing) HTN (hypertension) History of pulmonary embolism >10 years ago - unk etiology [place] Hypertension Near syncope Left shoulder pain Surgical History History of arthroscopy of left knee History of arthroscopy of right knee x3--last 03/18/22 @ [place] History of colonoscopy Family History Father Bone cancer Myocardial infarction Mother History of knee surgery Grandfather (Paternal) Myocardial infarction Brother Skin cancer Other No family history of adverse response to anesthesia Denies family history of Ovarian cancer Prostate cancer Breast cancer Colorectal cancer Social History Smoking Status: Former smoker Tobacco Type: Cigarettes packs per day: 1; Second Hand Exposure: No; Do You Dip or Chew Tobacco: No; Hx Alcohol Use: No Hx Substance Use: No Preferred Language: Cambodian Communication Ability: Effective Visual Impairment: No Limitations Hearing Ability: Normal Paper Hanger Required: No Beliefs That Will Affect Care: None marital status: Current Living Situation: Spouse current occupational status: employed How many Children do You have: 3 Other Information That Helps Us Care for You: No Feels Safe at Home: Yes Safety Concerns: Feels Safe At This Time Childhood Exposure to Second-Hand Smoke: No caffeine: Yes Dental Care, Regularly: Yes Seatbelt Use: always Sunscreen Use: No Assistive Devices: None Review of Systems Review of Systems: Per HPI Physical Exam Physical Exam: The patient is alert and oriented. Mood and affect appeared normal. He answered all questions appropriately. Obese HEENT: Pupils are equal and reactive to light and accommodation. Extraocular movements are intact. The sclerae are anicteric. Neuro: Cranial nerves intact Lungs: Clear to auscultation bilaterally. He has good air movement without use of accessory muscles. No rales wheezes or rhonchi. Cardiac: Heart demonstrates a regular rate and rhythm. Normal S1 and S2. No murmurs on examination. Pulses: The patient has palpable radial pulses bilaterally that are equal in intensity Extremities: There was no evidence of hypoperfusion. There is no cyanosis or clubbing. There is no edema. Skin: I did not appreciate any rashes on examination today. Results & Data Vital Signs (Past 12 Hours) Vital Signs Temp Pulse Pulse Resp BP Pulse Ox O2 Del Method 02/14/24 08:00 36.7 C 61 18 124/73 97 Room Air 02/14/24 03:34 36.6 C 53 L 20 113/70 96 Room Air 02/13/24 23:00 63 03/16/24 22:55 36.9 C 64 20 94/52 L 94 Room Air Laboratory Results Abnormal Lab Results 02/13/24 02/13/24 02/13/24 11:55 14:10 21:21 WBC 8.20 RBC 5.57 Hgb 16.5 Hct 48.3 MCV 86.7 MCH 29.6 MCHC 34.2 RDW Std Deviation 39.6 RDW Coeff of Giorgi 12.6 Plt Count 179 MPV 12.6 H Immature Gran % (Auto) 0.5 Neut % (Auto) 77.3 Lymph % (Auto) 12.3 [place] % (Auto) 8.2 Eos % (Auto) 1.1 Baso % (Auto) 0.6 Neut # (Auto) 6.34 Lymph # (Auto) 1.01 L [place] # (Auto) 0.67 H Eos # (Auto) 0.09 Baso # (Auto) 0.05 Immature Gran # (Auto) 0.04 PT 10.9 INR 1.0 APTT 29 PTT Ratio 1.0 Heparin Anti-Xa, Unfract 0.14 L Sodium 136 Potassium 4.0 Chloride 100 Carbon Dioxide 27 Anion Gap 9 BUN 15 Creatinine 0.91 Est Cr Clr Drug Dosing 119.8 Est GFR ( Amer) 106.5 Est GFR (Non-Af Amer) 91.9 BUN/Creatinine Ratio 16.5 Glucose 107 H Calcium 10.2 Magnesium 1.9 Total Bilirubin 0.9 AST 48 H ALT 101 H Alkaline Phosphatase 50 Troponin I High Sens 99.1 H* 553.1 H* D 3901.9 H* D Total Protein 8.0 Albumin 5.0 Globulin 3.0 Albumin/Globulin Ratio 1.7 Triglycerides Cholesterol LDL Cholesterol, Calc VLDL Cholesterol, Calc HDL Cholesterol Cholesterol/HDL Ratio 02/14/24 02/14/24 01:58 05:14 WBC 7.06 RBC 4.71 Hgb 13.8 L Hct 41.2 L MCV 87.5 MCH 29.3 MCHC 33.5 RDW Std Deviation 40.9 RDW Coeff of Giorgi 12.7 Plt Count 141 MPV 12.3 Immature Gran % (Auto) 0.4 Neut % (Auto) 66.5 Lymph % (Auto) 17.4 [place] % (Auto) 10.9 Eos % (Auto) 4.1 Baso % (Auto) 0.7 Neut # (Auto) 4.69 Lymph # (Auto) 1.23 [place] # (Auto) 0.77 H Eos # (Auto) 0.29 Baso # (Auto) 0.05 Immature Gran # (Auto) 0.03 PT INR APTT PTT Ratio Heparin Anti-Xa, Unfract 0.24 L Sodium 135 L Potassium 4.2 Chloride 100 Carbon Dioxide 31 Anion Gap 4 BUN 23 Creatinine 1.04 Est Cr Clr Drug Dosing 104.0 Est GFR ( Amer) 90.7 Est GFR (Non-Af Amer) 78.2 BUN/Creatinine Ratio 22.1 H Glucose 110 H Calcium 8.8 Magnesium 2.0 Total Bilirubin AST ALT Alkaline Phosphatase Troponin I High Sens 3132.6 H* Total Protein Albumin Globulin Albumin/Globulin Ratio Triglycerides 64 Cholesterol 138 LDL Cholesterol, Calc 87 VLDL Cholesterol, Calc 13 HDL Cholesterol 38 Cholesterol/HDL Ratio 3.6 Diagnostic Findings Chest CTA obtained at the time of admission did not demonstrate any evidence of aortic dissection or pulmonary embolus. Extensive coronary artery calcification was noted. Noncalcified pulmonary nodules were also noted. Chest x-ray at the time of admission did not demonstrate any acute cardiopulmonary abnormality Medications Administered EKG obtained the time admission revealed normal sinus rhythm with some minor ST segment changes in the inferior limb leads PG Care Time/CCT Total # of Minutes Spent Total Time Spent with Patient: Total time spent is greater than 50% in coordination of care (as documented) at patient's floor/unit and/or counseling patient: Coding Level of Care Code 80867 IN/OBS CONSULT LVL 4,60M Diagnoses NSTEMI (non-ST elevated myocardial infarction) I21.4 Hypertension I10 Hypertension type: unspecified Sleep apnea G47.30 (2) Hypertension Hypertension type: unspecified Qualified Code(s): I10 - Essential (primary) hypertension
[2024-02-14] MEDS: carvediloL 3.125 MG TAB PO SCH (12:06)
[2024-02-14] MEDS: ATORVASTATIN 40 MG TAB PO SCH (12:06)
--- NOTE | 2024-02-14 12:19 | Electrocardiogram Report ---
Test Reason : Blood Pressure : / mmHG Vent. Rate : 061 BPM Atrial Rate : 061 BPM P-R Int : 164 ms QRS Dur : 110 ms QT Int : 408 ms P-R-T Axes : 066 -24 -13 degrees QTc Int : 410 ms Normal sinus rhythm with sinus arrhythmia Incomplete right bundle branch block ST segement changes in the inferior leads concerning for ischemia Borderline ECG When compared with ECG of 13-FEB-2024 11:54, No significant change was found Confirmed by Huy Lindsey ([id number]) on 02/14/2024 12:19:11 PM Referred By: REFERRED SELF Confirmed By:Reginald Lindsey
[2024-02-14 12:44] LABS: ANTI-Xa, UFH(UnfractionatedHep 0.15 IU/ml (0.3-0.7)
[2024-02-14] MEDS ORDERED: HEPARIN SOD (PORCINE) 1000 UNIT/ML IV ONE (13:33)
[2024-02-14] MEDS ORDERED: Heparin IVP from UFH Protocol (WITH Bolus) IV ONE (13:45)
--- NOTE | 2024-02-14 14:29 | XCELERA ---
[id number] \\[id number]
[2024-02-14] MEDS: HEPARIN IV BOLUS 4,000 UNITS in SYRINGE 0 ML IV STA (15:13)
--- NOTE | 2024-02-14 20:45 | Hospitalist Progress Note ---
Date of Service February 14, 2024 Assessment & Plan (1) NSTEMI (non-ST elevated myocardial infarction): Plan: Clinical presentation, EKG, elevated troponin - all c/w NSTEMI. Peak HS troponin 3900. Symptoms resolved. Echo with preserved EF and preserved wall motion. Lipid parameters - LDL 87, HDL 38, Trigs 64. EKG today with inferior wall ST depressions c/w ischemia. Appreciate cardiology consultation by Dr Lindsey. Plan - * cont heparin infusion x 48 hours * coreg and lipitor initiated by Dr Lindsey * pt on losartan/HCTZ combo at home; will d/c HCTZ, and proceed with losartan at reduced dose to allow more BP room for his beta micheal * cont asa * NPO after MN tonight for cardiac cath in am * plan of care to be dictated by cardiac cath results (2) Hypertension: Plan: controlled coreg low-dose added today stop losartan-HCTZ comb cont losartan, but reduce dose to 25mg daily (3) Sleep apnea: Plan: no on Rx for such was on CPAP in the past will d/w nasal pillows (4) Fatty liver: Plan: history of such elevated ast/alt likely due to fatty liver watch LFTs with initiation of statin (5) History of pulmonary embolism: Plan: >10 years ago per records (6) Morbid obesity with BMI of 40.0-44.9, adult: Plan: BMI ~40 Plan family updated at bedside Admission and Anticipated Discharge Date Admission Date: February 13, 2024 Subjective tele stable overnight - NSR since admission no further chest pain, dyspnea, MULLINS or diaphoresis feels well during the visit his & 2 daughters were at bedside - questions answered he mentions 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 Review of Systems Review of Systems: gen - feels well today cv - no edema, no PND, no orthopnea pulm - no cough gi - no N/V Physical Exam Physical Exam: gen - obese, very pleasant, sitting at side of bed neck - no JVD heart - RRR, s1 s2, no murmur lungs - CTA b/l abd - soft NT ND BS+ ext - no edema, pulses feet 2+ b/l psych - a/o x 3 Results & Data Results & Data Vital Signs (Past 12 Hours) Vital Signs Temp Pulse Pulse Resp BP Pulse Ox O2 Del Method 02/14/24 20:00 36.7 C 56 L 16 104/64 95 Room Air 02/14/24 14:00 75 02/14/24 11:00 36.5 C 80 Laboratory Results Laboratory Results - last 24 hr 02/13/24 02/14/24 02/14/24 21:21 01:58 05:14 WBC 7.06 RBC 4.71 Hgb 13.8 L Hct 41.2 L MCV 87.5 MCH 29.3 MCHC 33.5 RDW Std Deviation 40.9 RDW Coeff of Giorgi 12.7 Plt Count 141 MPV 12.3 Immature Gran % (Auto) 0.4 Neut % (Auto) 66.5 Lymph % (Auto) 17.4 Motley % (Auto) 10.9 Eos % (Auto) 4.1 Baso % (Auto) 0.7 Neut # (Auto) 4.69 Lymph # (Auto) 1.23 Motley # (Auto) 0.77 H Eos # (Auto) 0.29 Baso # (Auto) 0.05 Immature Gran # (Auto) 0.03 Heparin Anti-Xa, Unfract 0.14 L 0.24 L Sodium 135 L Potassium 4.2 Chloride 100 Carbon Dioxide 31 Anion Gap 4 BUN 23 Creatinine 1.04 Est Cr Clr Drug Dosing 104.0 Est GFR ( Amer) 90.7 Est GFR (Non-Af Amer) 78.2 BUN/Creatinine Ratio 22.1 H Glucose 110 H Calcium 8.8 Magnesium 2.0 Troponin I High Sens 3901.9 H* D 3132.6 H* Triglycerides 64 Cholesterol 138 LDL Cholesterol, Calc 87 VLDL Cholesterol, Calc 13 HDL Cholesterol 38 Cholesterol/HDL Ratio 3.6 02/14/24 11:54 WBC RBC Hgb Hct MCV MCH MCHC RDW Std Deviation RDW Coeff of Giorgi Plt Count MPV Immature Gran % (Auto) Neut % (Auto) Lymph % (Auto) Motley % (Auto) Eos % (Auto) Baso % (Auto) Neut # (Auto) Lymph # (Auto) Motley # (Auto) Eos # (Auto) Baso # (Auto) Immature Gran # (Auto) Heparin Anti-Xa, Unfract 0.15 L Sodium Potassium Chloride Carbon Dioxide Anion Gap BUN Creatinine Est Cr Clr Drug Dosing Est GFR ( Amer) Est GFR (Non-Af Amer) BUN/Creatinine Ratio Glucose Calcium Magnesium Troponin I High Sens Triglycerides Cholesterol LDL Cholesterol, Calc VLDL Cholesterol, Calc HDL Cholesterol Cholesterol/HDL Ratio PG Care Time/CCT Total # of Minutes Spent Total Time Spent with Patient: Total time spent is greater than 50% in coordination of care (as documented) at patient's floor/unit and/or counseling patient: Coding Level of Care Code 38515 SUB INP/OBS CARE 12/24MIN Diagnoses NSTEMI (non-ST elevated myocardial infarction) I21.4 Hypertension I10 Sleep apnea G47.30 Fatty liver K76.0 History of pulmonary embolism Z86.711 Morbid obesity with BMI of 40.0-44.9, adult E66.01; Z68.41
[2024-02-14 22:02] LABS: ANTI-Xa, UFH(UnfractionatedHep 0.37 IU/ml (0.3-0.7)
[2024-02-15 04:32] LABS: BUN Creatinine Ratio 20.2 (10-20); Calcium 8.7 mg/dl (8.6-10.3); Creatinine Clr Calc Pharmacy 104.5 ml/min; Est GFR (African American) 90.7 ml/min; Est GFR (Non-African American) 78.2 ml/min; Potassium 3.9 mmol/L (3.5-5.1)
[2024-02-15 04:39] LABS: ANTI-Xa, UFH(UnfractionatedHep 0.31 IU/ml (0.3-0.7)
[2024-02-15] MEDS ORDERED: Nursing to Pharmacy Communication SCH ×2 (06:00→11:00)
[2024-02-15 07:30] LABS: Estimated Average Glucose 126 mg/dl
--- NOTE | 2024-02-15 08:54 | Pre Anesthesia Assessment ---
Date of Service February 15, 2024 Pre Sedation Assessment Vital Signs Temp Pulse Pulse Resp BP BP Pulse Ox 02/15/24 07:05 36.4 C L 58 L 16 114/75 93 02/15/24 04:51 36.8 C 58 L 16 91/56 L 94 02/14/24 23:24 36.6 C 80 16 109/65 98 02/14/24 23:00 60 02/14/24 20:00 36.7 C 56 L 16 104/64 95 02/14/24 14:00 75 02/14/24 11:00 36.5 C 80 O2 Del Method 02/15/24 07:05 Room Air 02/15/24 04:51 Room Air 02/14/24 23:24 Room Air 02/14/24 23:00 02/14/24 20:00 Room Air 02/14/24 14:00 02/14/24 11:00 Cardiovascular + regular rhythm and + bradycardic Respiratory + respiratory effort normal Pre-Sedation Airway Assessment Smoking Status: Former smoker Hx Sleep Apnea: Yes Hx Difficult Intubation: No Short, Thick Neck: No Thyromental Distance: > or= 3.5 Finger Breadths Oral Cavity: + WNL Mallampati Class: IV ASA: ASA3 NPO Status Date of Last Intake of Fluids: 02/15/24 Time of Last Intake of Fluids: 08:48 Last Oral Intake of Fluids Comment: sip with meds Date of Last Intake of Solid Food: 02/14/24 Procedure Planning Contraindications for Sedation: none Current Medications Reviewed: Yes Notes The planned sedation has been discussed with the patient. Informed Consent was obtained. I have identified the patient, determined the appropriateness of sedation and have assessed the patient immediately prior to the procedure. All medicine(s) and interventions are by my order.
--- NOTE | 2024-02-15 09:05 | Electrocardiogram Report ---
Test Reason : Blood Pressure : / mmHG Vent. Rate : 074 BPM Atrial Rate : 074 BPM P-R Int : 162 ms QRS Dur : 102 ms QT Int : 396 ms P-R-T Axes : 051 -22 010 degrees QTc Int : 439 ms Normal sinus rhythm with sinus arrhythmia Normal ECG When compared with ECG of 13-FEB-2024 11:54, No significant change was found Confirmed by Huy Lindsey ([id number]) on 02/15/2024 9:04:41 AM Referred By: REFERRED SELF Confirmed By:Reginald Lindsey
[2024-02-15] MEDS: ASPIRIN 81 MG CHEW ONE (09:39)
[2024-02-15] MEDS: NITROGLYCERIN/D5W 100MCG/ML 20ML SYR ONE (09:40)
[2024-02-15] MEDS: niCARdipine HCL INJ 2.5 MG/ML 10 ML AMP ONE (09:40)
--- NOTE | 2024-02-15 10:02 | Cardiac Catheterization ---
[facility] Data: [facility] [employer] [facility] Cardiac Status Clinical evaluation leading to the procedure Diagnostic Physicians Name: Huy Lindsey MD Closure Device Recommendations: PCI without planned CABG Cardiac Cath Procedure Full Procedure Date February 15, 2024 Pre-Procedure Diagnosis Pre-Procedure Diagnosis: Non STEMI AUC Score AUC Score: 8 Post-Procedure Diagnosis Post-Procedure Diagnosis: Severe CAD Procedure(s) Performed Procedure(s) Performed: Coronary Angiography and Left Heart Cath Buffer Nickel Huy Lindsey MD Director Career(s) none Estimated Blood Loss Estimated Blood Loss: 10cc Medication(s) Medication(s): Fentanyl, Heparin, Lidocaine 1%, Nicardipine, Nitroglycerin and Versed Summary of Findings Procedure performed: Coronary angiography, left heart catheterization Staff crnp: Huy Lindsey MD Indication: Procedure in detail: The patient was informed of the risks benefits and alternatives to the intended procedure, he understood such and wished to proceed. He was taken to the cardiac catheterization suite in a fasting state. Conscious sedation was administered per protocol and the patient was monitored electrocardiographically throughout today's procedure. The right wrist area was prepped and draped in usual sterile fashion. This area was anesthetized using subcutaneous administration of a lidocaine solution. The right radial artery was then accessed using Seldinger technique, and a arterial sheath was placed at this site over a guidewire. The sheath was used to facilitate passage of the cardiac catheter for coronary angiography and left heart catheterization. Coronary angiogram was then obtained in multiple orthogonal views prior to removal of the catheter. At the conclusion of the procedure the sheath was removed and hemostasis was achieved at the access site using manual pressure. The patient tolerated procedure well, there were no immediate complications. Equipment used: 5 [place] tiger 4, 5 [place] AR2 Findings: Coronary angiography Left main: Left main was normal in size and caliber and bifurcated normally into the left anterior descending left circumflex arteries. No significant disease Left anterior descending: Left circumflex: Left circumflex was a nondominant vessel. There were luminal irregularities throughout its course. Right coronary: The right coronary artery was a large patulous vessel which produced PDA. It was diffusely diseased in its proximal portion with evidence of an acute coronary syndrome and thrombus. There was a discrete stenosis in the proximal portion estimated at 90%. Some luminal regularities prior to development of another discrete 90% stenosis in the mid vessel. Impression: Severe coronary disease involving the right coronary artery Right dominant system Normal left ventricular filling pressures No evidence of aortic stenosis Hemodynamics Rest Ao:: 85/60 mmHg Final Ao: 109/75 mmHg LV: 98/0 mmHg LVEDP 4 mmHg Recommendations Recommendations: PCI without planned CABG Specimens Specimens: None Radiation Exposure (mGy) 2234 Contrast (mls) 45 Procedural Complication(s) None Disposition PCU I attest to the content of the Intraoperative Record and any orders documented therein. Any exceptions are noted below. [facility] Card Cath Procedure Codes Cardiac Catheterization Procedure 1: Cardiovascular Cath Procedures: 93257 Coronaries and LHC (+/-LV) Moderate Sedation Procedure 1: Sedation/Anesthesia: 07239 Mod Sedation by the same physician;Init15 Min Child Age 5 & Up Procedure 2: Sedation/Anesthesia: 32666 Mod Sedation by the same physician; Ea [id number] Minutes PG Care Time/CCT Total # of Minutes Spent Total Time Spent with Patient: Total time spent is greater than 50% in coordination of care (as documented) at patient's floor/unit and/or counseling patient:
[2024-02-15] MEDS: OPTIRAY 350 ONE (11:12)
[2024-02-15] MEDS: fentaNYL citrate PF 100 MCG/2 ML VIAL ONE ×2 (11:13→11:14)
[2024-02-15] MEDS: MIDAZOLAM HCL 1 MG/ML 2ML VIAL ONE ×3 (11:14)
[2024-02-15] MEDS: HEPARIN (PORCINE) 1000 UNIT/ML 10 ML (CATH LAB USE ONLY) ONE ×2 (11:15→11:24)
[2024-02-15] MEDS: TICAGRELOR 90 MG TAB ONE (11:15)
--- NOTE | 2024-02-15 11:55 | Post Anesthesia Assessment ---
Date of Service February 15, 2024 Post Sedation Assessment Vital Signs Temp Pulse Pulse Resp BP BP Pulse Ox 02/15/24 11:37 54 L 16 125/86 93 02/15/24 11:22 55 L 16 124/84 93 02/15/24 09:31 59 L 02/15/24 07:05 36.4 C L 58 L 16 114/75 93 02/15/24 04:51 36.8 C 58 L 16 91/56 L 94 02/14/24 23:24 36.6 C 80 16 109/65 98 02/14/24 23:00 60 02/14/24 20:00 36.7 C 56 L 16 104/64 95 02/14/24 14:00 75 O2 Del Method 02/15/24 11:37 Room Air 02/15/24 11:22 Room Air 02/15/24 09:31 02/15/24 07:05 Room Air 02/15/24 04:51 Room Air 02/14/24 23:24 Room Air 02/14/24 23:00 02/14/24 20:00 Room Air 02/14/24 14:00 Recovery Score Activity: Moves 4 extremities Respiration: Deep Breath/Cough Circulation: +/-20% PreAnes Value Consciousness: Fully Awake Oxygen Saturation: > 92% On Room Air Post Anesthesia Score: 10 Discharge Sedation Level of Care: Fast Track Phase II Post Sedation Plan On clinical assessment, the patient appears to have tolerated the sedation without complications. Patient is recovering as anticipated. Patient will continue to be monitored by nursing and may be discharged when sedation discharge criteria are met per below protocol. Upon Completions of procedure up to 15 minutes continue every 5 minute vital signs and the P.A.R. score; then discharge to a Phase I or Fast Track to Phase II per the following guidelines: * Discharge Patient to appropriate Phase II area if PAR is 8 or greater or return to pre- procedure baseline. The post - procedure orders will be as directed. * If PAR score is less than 8 or not return to pre-procedure baseline then patient will follow Phase I monitoring till PAR is reached for Phase II. The Phase I may be done in procedure room or may call to secure a Phase I area. * If naloxone or flumazenil are used for reversal, hold in Phase I for continued monitoring from when last reversal dose was given for a minimum of 60 minutes or longer pending the nurse and/or physician discretion of patient condition before discharge to Phase II. Please call the Sedation Physician to re-evaluate and complete post-note for discharge to Phase II area. Do NOT discharge from procedure sedation or Phase 1 until post- sedation evaluation note is complete by procedure /sedation MD Sedation Discharge Instructions to be given to the patient at discharge to home. [facility] Procedure Codes (Charges) Indication for Procedure Indication for procedure: Non-ST elevation [facility] Sedation/Anesthesia Procedure 1: Sedation/Anesthesia: 06729 Mod Sedation by a different physician ;Init15 Min Child Age 5&Up (Initial 15 min, start time 0945) Total Sedation Time (minutes): 81 Procedure 2: Sedation/Anesthesia: 30424 Mod Sedation by a different physician;Ea Additional 15 Minutes (Additional 66 min, end time 1106) Total Sedation Time (minutes): 81
--- NOTE | 2024-02-15 12:08 | Cardiology Progress Note ---
Date of Service February 15, 2024 Assessment & Plan (1) NSTEMI (non-ST elevated myocardial infarction): (2) Hypertension: (3) Sleep apnea: Plan 1. NSTEMI: Related to an ACS involving the right coronary artery. Status post PCI today. We will start dual anti-platelet therapy and continue high-dose atorvastatin. He seems to be tolerating low-dose carvedilol. Will continue losartan. 2. Hypertension: Blood pressure currently well controlled. Apparently an adverse reaction to nifedipine in the past. I think we can continue his outpatient regimen of losartan and hydrochlorothiazide. Carvedilol added. Admission and Anticipated Discharge Date Admission Date: February 13, 2024 Subjective No recurrent symptoms overnight. Ambulatory around the room without dizziness or lightheadedness. Some back discomfort during his procedure. Review of Systems Review of Systems: Per HPI Physical Exam Physical Exam: The patient is alert and oriented. Mood and affect appeared normal. He answered all questions appropriately. Obese HEENT: Pupils are equal and reactive to light and accommodation. Extraocular movements are intact. The sclerae are anicteric. Neuro: Cranial nerves intact Lungs: Normal respiratory effort Cardiac: Heart demonstrates a regular rate and rhythm. Pulses: The patient has palpable radial pulses bilaterally that are equal in i ntensity Extremities: There was no evidence of hypoperfusion. There is no cyanosis or clubbing. There is no edema. Skin: I did not appreciate any rashes on examination today. Results & Data Vital Signs (Past 12 Hours) Vital Signs Temp Pulse Pulse Resp BP BP Pulse Ox 02/15/24 11:37 54 L 16 125/86 93 02/15/24 11:22 55 L 16 124/84 93 02/15/24 09:31 59 L 02/15/24 07:05 36.4 C L 58 L 16 114/75 93 02/15/24 04:51 36.8 C 58 L 16 91/56 L 94 O2 Del Method 02/15/24 11:37 Room Air 02/15/24 11:22 Room Air 02/15/24 09:31 02/15/24 07:05 Room Air 02/15/24 04:51 Room Air Laboratory Results Abnormal Lab Results 02/14/24 02/14/24 02/15/24 11:54 21:11 03:43 Activ Coag Time Kaolin Heparin Anti-Xa, Unfract 0.15 L 0.37 0.31 Sodium 136 Potassium 3.9 Chloride 101 Carbon Dioxide 30 Anion Gap 5 BUN 21 Creatinine 1.04 Est Cr Clr Drug Dosing 104.5 Est GFR ( Amer) 90.7 Est GFR (Non-Af Amer) 78.2 BUN/Creatinine Ratio 20.2 H Glucose 109 H Estimat Average Glucose 126 Hemoglobin A1c 6.0 H Calcium 8.7 02/15/24 02/15/24 02/15/24 09:49 10:06 10:48 Activ Coag Time Kaolin 152 H 271 H 315 H Heparin Anti-Xa, Unfract Sodium Potassium Chloride Carbon Dioxide Anion Gap BUN Creatinine Est Cr Clr Drug Dosing Est GFR ( Amer) Est GFR (Non-Af Amer) BUN/Creatinine Ratio Glucose Estimat Average Glucose Hemoglobin A1c Calcium 02/15/24 11:07 Activ Coag Time Kaolin 201 H Heparin Anti-Xa, Unfract Sodium Potassium Chloride Carbon Dioxide Anion Gap BUN Creatinine Est Cr Clr Drug Dosing Est GFR ( Amer) Est GFR (Non-Af Amer) BUN/Creatinine Ratio Glucose Estimat Average Glucose Hemoglobin A1c Calcium Diagnostic Findings Coronary angiography performed today revealed nonobstructive disease involving the left circumflex and LAD. No left main disease. Ectatic right coronary artery with evidence of thrombus in diffusely disease with discrete stenosis in both the proximal and mid portions. Patient status post percutaneous intervention to the right coronary with good result. Normal left ventricular filling pressures 02/14/2024: Normal LV systolic function without regional wall motion abnormalities. Normal right ventricular filling pressures. PG Care Time/CCT Total # of Minutes Spent Total Time Spent with Patient: Total time spent is greater than 50% in coordination of care (as documented) at patient's floor/unit and/or counseling patient: Coding Level of Care Code 84305 SUB INP/OBS CARE 2/35MIN Diagnoses NSTEMI (non-ST elevated myocardial infarction) I21.4 Hypertension I10 Hypertension type: unspecified Sleep apnea G47.30 (2) Hypertension Hypertension type: unspecified Qualified Code(s): I10 - Essential (primary) hypertension
--- NOTE | 2024-02-15 12:20 | Cardiac Catheterization ---
[facility] Data: Supervisor Adult Education Cardiac Status Clinical evaluation leading to the procedure CAD Presenation: Non STEMI Anginal Classification: CCS IV Heart Failure: No Cardiogenic Shock within 24 Hours: No Cardiac Arrest within 24 Hours: No Imaging Studies Past 6 Months: No Stress Studies Past 6 Months: No Diagnostic Physicians Name: Elijah Floyd MD, PhD Closure Device Percutaneous Entry Location: Radial Closure Device: Radial Band Recommendations: Medical Therapy and/or Counseling and PCI without planned CABG PCI Indication: PCI for high risk Non-PHAN Lesion Segment Name: Proximal through mid RCA Culprit Artery: Yes Stenosis Prior to Rx (%): Up to 99% Chronic Total Occlusion: No Pre-Procedure CHANTELL Flow: 1 Previously Treated Lesion: No Lesion Complexity: High/C Lesion Length (mm): 35 Thrombus Present: Yes Bifurcation Lesion: No Guidewire Across Lesion: Yes Intraprocedure Events Significant Disection: No Perforation: No Cardiac Cath Procedure Full Procedure Date February 15, 2024 Pre-Procedure Diagnosis Pre-Procedure Diagnosis: Non STEMI AUC Score AUC Score: 09 Post-Procedure Diagnosis Post-Procedure Diagnosis: Severe CAD and Successful PCI Procedure(s) Performed Procedure(s) Performed: Drug Eluting Stent and Procedure (Shockwave intracoronary lithotripsy) Tire Trucker Elijah Floyd MD, PhD Ophthalmic Medical Technologist(s) none Estimated Blood Loss Estimated Blood Loss: 10cc Medication(s) Medication(s): Fentanyl, Heparin, Lidocaine 1%, Nicardipine, Nitroglycerin and Versed Summary of Findings Brief description: Patient was already shaved and prepped and on the Supervisor Adult Education table. He had been sedated for the diagnostic catheterization performed by Dr. Lindsey. He had a 6 [place] radial artery sheath in the right wrist. He was hemodynamically stable. Additional sedation was provided with Versed and fentanyl IV. ACT was checked and additional heparin was provided intermittently throughout the case as needed to maintain therapeutic anticoagulation. Decision was made to attempt PCI of the RCA. A 6 [place] AR-1 guide catheter was used to engage the right coronary artery. A run-through coronary guidewire was used to pass the lesions in the RCA and position the guidewire distally. A 6 [place] guide liner guide catheter backup support was advanced over the wire to the level of the first lesion. The diseased segment was predilated using a 1.5 x 12 mm sprinter balloon beginning distally and pulling back to the most proximal portion. First inflation 6 aisha and for subsequent inflations to 12 aisha. Predilatation of the diseased segment using a 2.0 x 12 mm mini trek balloon. Initial inflation to 14 aisha, 3 subsequent inflations to 17 aisha distally to proximally. Predilatation with a 2.5 x 12 mm sprinter balloon distally twice at 12 aisha and proximally twice at 14 aisha. Intracoronary lithotripsy with a 2.5 x 12 mm shockwave lithotripsy balloon. This was performed in the mid and proximal portion of the diseased segment at 4 aisha x 2. Coronary angiography performed. Predilatation of the mid segment with a 2.75 x 12 mm NC sprinter balloon at 10 aisha and a second inflation to 12 aisha. Intracoronary lithotripsy of the proximal to midportion of the diseased segment with a 3.5 x 12 mm shockwave balloon at 4 aisha, 4 aisha, and 4 aisha. Drug-eluting stent implantation using a 2.75 x 22 mm [place] drug-eluting stent positioned to cover the most distal portion of the diseased segment back to the mid segment after ectatic portion. Deployed at 18 aisha. The proximal portion of the stent was then postdilated with the stent balloon to 21 aisha. Drug-eluting stent implantation with a 3.5 x 22 mm [place] drug-eluting stent overlapped with the proximal portion of the first stent and with its proximal edge positioned proximally to the earliest lesion. Deployed at 15 aisha. Smog Technician angiography performed. Postdilatation of the proximal portion of the stent (ectatic proximal to mid RCA) with 12 aisha in the overlapped segment, 13 aisha in the mid stent and 19 aisha at the proximal edge. Balloon was removed. Smog Technician angiography performed and then the guidewire and guide liner were removed. Final angiographic evaluation performed. Guide catheter was removed over the J-wire. ACT was checked and additional heparin was provided. Patient was given 180 mg of Brilinta p.o. Radial artery sheath was removed and hemostasis was obtained using the radial band. Patient remained hemodynamically stable and asymptomatic. He was returned to the recovery area. This ended the case. PCI findings: Diffusely diseased proximal to mid vessel and focal disease of the mid to distal transition. First lesion appears moderately to severely calcified and subtotally occluded at the large RV marginal branch. Significant ectasia preceding this. The mid to distal lesion has mild calcification and appears to be 90% stenosed. 0% residual stenosis post PCI of the mid to distal lesion with the stent extending back to the RV marginal branch. Less than 10% residual stenosis in the proximal to mid disease segment with residual ectasia noted post PCI No evidence of dissection or perforation post PCI CHANTELL-3 flow post PCI Summary: 1. Severe and complex calcified proximal to early distal diffuse coronary disease with ectasia successfully treated with implantation of 2 overlapped drug-eluting stents. 2. Patient will remain on dual antiplatelet therapy for at least 1 to 2 years. Would not prematurely discontinue because of the complexity and extent of sten ting. 3. Guideline directed medical therapy for secondary prevention of coronary artery disease. Shall include low-dose aspirin, high intensity statin therapy, beta-micheal, and LATISHA inhibitor or angiotensin receptor micheal. 4. Highly recommend CARDIAC REHAB. Hemodynamics Rest Ao:: 109/75 mmHg Final Ao: 126/79 mmHg LV: Not performed Recommendations Recommendations: Medical Therapy and/or Counseling and PCI without planned CABG Specimens Specimens: None Radiation Exposure (mGy) 5273 mGy total, 3039 mGy for PCI. Fluoroscopy time PCI 21.8 m Contrast (mls) 200 (total) Anesthesia 2 mg Versed, 75 mcg fentanyl (start 09, end 1106) Procedural Complication(s) None Disposition PCU I attest to the content of the Intraoperative Record and any orders documented therein. Any exceptions are noted below. [facility] Card Cath Procedure Codes Moderate Sedation Procedure 1: Sedation/Anesthesia: 67993 Mod Sedation by a different physician ;Init15 Min Child Age 5&Up (Initial 15 min, start 0945) Procedure 2: Sedation/Anesthesia: 68666 Mod Sedation by a different physician;Ea Additional 15 Minutes (Additional 66 min, end time 1106) Stenting Procedure 1: Cardiovascular Stent Procedures: 38594 Perc transluminal revascularization of acute sub/total occl, aMI (RCA. +0715T intracoronary lithotripsy) PG Care Time/CCT Total # of Minutes Spent Total Time Spent with Patient: Total time spent is greater than 50% in coordination of care (as documented) at patient's floor/unit and/or counseling patient:
--- NOTE | 2024-02-15 17:29 | Electrocardiogram Report ---
Test Reason : Blood Pressure : / mmHG Vent. Rate : 059 BPM Atrial Rate : 059 BPM P-R Int : 164 ms QRS Dur : 114 ms QT Int : 434 ms P-R-T Axes : 057 -22 -09 degrees QTc Int : 429 ms Sinus bradycardia Incomplete right bundle branch block Borderline ECG When compared with ECG of 14-FEB-2024 10:00, No significant change was found Confirmed by Huy Lindsey ([id number]) on 02/15/2024 5:29:03 PM Referred By: REFERRED SELF Confirmed By:Reginald Lindsey
--- NOTE | 2024-02-15 19:16 | Hospitalist Progress Note ---
Date of Service February 15, 2024 Assessment & Plan (1) NSTEMI (non-ST elevated myocardial infarction): Plan: Symptoms, clinical presentation, EKGs, elevated troponin - all c/w NSTEMI. Peak HS troponin 3900. s/p cardiac cath today by Dr Lindsey and Dr Floyd. Appreciate their assistance. See #2 below. 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 Finish heparin infusion. Cont coreg and lipitor. Cont losartan. Cont asa 81mg daily. Has been loaded with Brilinta in the cardiac computer lab para professional. Echo with preserved EF and preserved wall motion. Lipid parameters - LDL 87, HDL 38, Trigs 64. EKGs with inferior wall ST depressions c/w ischemia from the occluded RCA. (2) CAD (coronary artery disease): Plan: s/p diagnostic cath today by Dr Lindsey. LM, LAD, L Cx free of disease. "RCA -- large patulous vessel which produced PDA. It was diffusely diseased in its proximal portion with evidence of an acute coronary syndrome and thrombus. There was a discrete stenosis in the proximal portion estimated at 90%. Some luminal regularities prior to development of another discrete 90% stenosis in the mid vessel." s/p intervention by Dr Floyd. Angioplasty with stents x 2 to the RCA lesions. (3) Visual field cut: Plan: Patient had several minutes of bitemporal visual field loss. This spontaneously resolved. However, the visual disturbance was then followed by neck pain, occipital pain, and pain radiating to the right scalp and right frontal region. The visual field cut is concerning for possible embolic event from his cardiac catheterization. He does not have any migraine history to suggest complex migraine. The posterior neck pain could be referred pain from a BOOK CUTTER event. Can't rule out dissection of his neck vessels but this is unlikely. I recommended we obtain MRI brain to rule out acute stroke. Patient declined such stating he has severe claustrophobia and wouldn't be able to complete the study. I offered him sedation (ativan, etc) but again he declined the MRI brain. He is willing to undergo CT head and CTAs head/neck. He had about 250cc of contrast today between the diagnostic & interventional caths. Thus, we may not be able to complete his CTAs today. Will start IV fluids, and I did order a CT head and CTA neck to r/o dissection, etc. Fortunately his neurological exam including visual field testing was normal by the time of my assessment. (4) Neck pain: Plan: see #3 above (5) Hypertension: Plan: controlled cont coreg 3.125mg BID cont losartan 25mg daily HCTZ has been stopped (6) Sleep apnea: Plan: no on Rx for such was on CPAP in the past (7) Fatty liver: Plan: history of such elevated ast/alt likely due to fatty liver watch LFTs with initiation of statin (8) History of pulmonary embolism: Plan: >10 years ago per records (9) Morbid obesity with BMI of 40.0-44.9, adult: Plan: BMI ~40 (10) Prediabetes: Plan: hba1c 6% will area counselor patient on this cardiac rehab post-discharge will help with this issue Plan DVT proph - defer on chemical means until results of head imaging have returned extensively updated at bedside Admission and Anticipated Discharge Date Admission Date: February 13, 2024 Subjective uneventful night last pm tele - NSR this am underwent diagnostic cath by Dr Lindsey showing normal LM, normal LAD, normal L Cx, but severe RCA disease - Right coronary: The right coronary artery was a large patulous vessel which pro duced PDA. It was diffusely diseased in its proximal portion with evidence of an acute coronary syndrome and thrombus. There was a discrete stenosis in the proximal portion estimated at 90%. Some luminal regularities prior to development of another discrete 90% stenosis in the mid vessel. he then underwent angioplasty with stents x [address] Floyd of the RCA occlusion following his cath he felt well breathing was the best it had been in quite some time no chest pain however, this afternoon he had a several minute long episode of visual field disturbance specifically he noted that his b/l temporal visual laura were cut/blurry after a few minutes the visual laura returned to normal Mr Johnson noted that upon return from the computer lab para professional he had neck soreness and discomfort after the visual field episode he then developed a headache that would extend from the right occipital region up to the parietal scalp and then the right frontal region the headache improved, but then he noted that any time he coughed the would have the pain he does not suffer from headaches typically Review of Systems Review of Systems: neuro - denies dysarthria/aphasia; denies sensory disturbance of any location; denies motor weakness; no vertigo; no ataxia cv - no chest pain pulm - no dyspnea or cough GI - no N/V Physical Exam Physical Exam: gen - sitting in chair, looks well, NAD, pleasant eyes - PERRLA; EOMI; no nystagmus; no visual field deficits by direct confrontation either eye neck - no JVD heart - RRR, s1 s2, no murmur lungs - CTA b/l abd - soft NT ND BS+ ext - no edema, pulses feet 2+ b/l psych - a/o x 3 vascular - right radial artery 2+, no hematoma neuro - strength 5/5 x 4 exts; no pronator drift; no ataxia finger/nose/finger maneuver; DTRs 2+ b/l upper & lower extremities Results & Data Results & Data Vital Signs (Past 12 Hours) Vital Signs Temp Pulse Pulse Resp BP Pulse Ox O2 Del Method 02/15/24 17:40 36.6 C 86 18 113/70 96 Room Air 02/15/24 16:40 36.5 C 70 16 111/80 94 Room Air 02/15/24 15:40 36.4 C L 72 16 129/88 94 Room Air 02/15/24 15:32 52 L 02/15/24 15:23 36.6 C 94 H 16 116/70 94 Room Air 02/15/24 14:40 36.5 C 68 16 131/89 96 Room Air 02/15/24 13:40 36.5 C 68 16 131/89 94 Room Air 02/15/24 13:10 36.7 C 62 16 135/87 96 Room Air 02/15/24 12:20 36.5 C 63 16 120/80 94 Room Air 02/15/24 12:09 56 L 02/15/24 12:05 36.4 C L 62 16 120/88 94 Room Air 02/15/24 11:50 36.6 C 51 L 16 119/81 92 Room Air 02/15/24 11:37 54 L 16 125/86 93 Room Air 02/15/24 11:22 55 L 16 124/84 93 Room Air 02/15/24 09:31 59 L Laboratory Results Laboratory Results - last 24 hr 02/14/24 02/15/24 02/15/24 21:11 03:43 09:49 Activ Coag Time Kaolin 152 H Heparin Anti-Xa, Unfract 0.37 0.31 Sodium 136 Potassium 3.9 Chloride 101 Carbon Dioxide 30 Anion Gap 5 BUN 21 Creatinine 1.04 Est Cr Clr Drug Dosing 104.5 Est GFR ( Amer) 90.7 Est GFR (Non-Af Amer) 78.2 BUN/Creatinine Ratio 20.2 H Glucose 109 H Estimat Average Glucose 126 Hemoglobin A1c 6.0 H Calcium 8.7 PG Care Time/CCT Total # of Minutes Spent Total Time Spent with Patient: Total time spent is greater than 50% in coordination of care (as documented) at patient's floor/unit and/or counseling patient: Coding Level of Care Code 37178 SUB INP/OBS CARE 3/50MIN Diagnoses NSTEMI (non-ST elevated myocardial infarction) I21.4 CAD (coronary artery disease) I25.10 Visual field cut H53.40 Neck pain M54.2 Hypertension I10 Sleep apnea G47.30 Fatty liver K76.0 History of pulmonary embolism Z86.711 Morbid obesity with BMI of 40.0-44.9, adult E66.01; Z68.41 Prediabetes R73.03
[2024-02-15] MEDS: LOSARTAN POTASSIUM 25 MG TAB PO SCH (20:07)
[2024-02-15] MEDS: SODIUM CHLORIDE 0.9% 1,000 ML IV SCH (20:08)
[2024-02-15] MEDS: TICAGRELOR 90 MG TAB PO SCH (20:08)
[2024-02-15] MEDS: OPTIRAY 320 125ml IV ONE (20:56)
--- NOTE | 2024-02-15 22:18 | CT Scan Report ---
Exam(s): CT HEAD Without Contrast EXAM: CT Head Without Intravenous Contrast CLINICAL HISTORY: Reason for exam: b/l visual field cut, occipital headache. TECHNIQUE: Axial computed tomography images of the head/brain without intravenous contrast. CTDI is 34.62 mGy and DLP is 624.41 mGy-cm. Automated exposure control was utilized for the study. A dose lowering technique was utilized adhering to the principles of ALARA. COMPARISON: CT head 11/04/2011. FINDINGS: Brain: Unremarkable. No hemorrhage. No significant white matter disease. No edema. Ventricles: Unremarkable. No ventriculomegaly. Bones/joints: Unremarkable. No acute fracture. Soft tissues: Unremarkable. Sinuses: Unremarkable as visualized. Mastoid air cells: Unremarkable as visualized. No mastoid effusion. IMPRESSION: No intracranial hemorrhage or other acute intracranial abnormality. Electronically signed by: Franco Reyes MD 02/15/24 22:17 PM
--- NOTE | 2024-02-15 22:20 | CT Scan Report ---
Exam(s): CTA HEAD With Contrast IV Amt: 118ml optiray 320 EXAM: CT Angiography Head With Intravenous Contrast CLINICAL HISTORY: Reason for exam: vision changes. TECHNIQUE: Axial computed tomographic angiography images of the head with intravenous contrast. CTDI is 34.62 mGy and DLP is 624.41 mGy-cm. Automated exposure control was utilized for the study. A dose lowering technique was utilized adhering to the principles of ALARA. MIP reconstructed images were created and reviewed. CONTRAST: Patient received 118ml optiray 320 of IV contrast COMPARISON: CT head 02/15/2024. FINDINGS: Right internal carotid artery: No acute findings. Intracranial segment is patent with no significant stenosis. No aneurysm. Right anterior cerebral artery: Unremarkable. No occlusion or significant stenosis. No aneurysm. Right middle cerebral artery: Unremarkable. No occlusion or significant stenosis. No aneurysm. Right posterior cerebral artery: Unremarkable. No occlusion or significant stenosis. No aneurysm. Right vertebral artery: Unremarkable as visualized. Left internal carotid artery: No acute findings. Intracranial segment is patent with no significant stenosis. No aneurysm. Left anterior cerebral artery: Unremarkable. No occlusion or significant stenosis. No aneurysm. Left middle cerebral artery: Unremarkable. No occlusion or significant stenosis. No aneurysm. Left posterior cerebral artery: Unremarkable. No occlusion or significant stenosis. No aneurysm. Left vertebral artery: Atherosclerosis of the V4 segment of the left vertebral artery. Basilar artery: Unremarkable. No occlusion or significant stenosis. No aneurysm. IMPRESSION: No large vessel occlusion. Electronically signed by: Franco Reyes MD 02/15/24 22:19 PM
--- NOTE | 2024-02-15 22:24 | CT Scan Report ---
Exam(s): CTA NECK With Contrast IV Amt: 118ML OPTIRAY 320 EXAM: CT Angiography Neck With Intravenous Contrast CLINICAL HISTORY: Reason for exam: neck pain, occipital h/a; ro dissection. TECHNIQUE: Routine carotid CT angiography protocol was performed with intravenous contrast. NASCET criteria using the distal ICAs for comparison were used for evaluation of stenoses. CTDI is 14.02 mGy and DLP is 561.55 mGy-cm. Automated exposure control was utilized for the study. A dose lowering technique was utilized adhering to the principles of ALARA. MIP reconstructed images were created and reviewed. CONTRAST: Patient received 118ML OPTIRAY 320 of IV contrast COMPARISON: None. FINDINGS: VASCULATURE: Right common carotid artery: Unremarkable. No occlusion or significant stenosis. No dissection. Right internal carotid artery: Unremarkable. Extracranial segment is patent with no occlusion or significant stenosis. No dissection. Right external carotid artery: Unremarkable. No occlusion. Right vertebral artery: Unremarkable. No occlusion or significant stenosis. No dissection. Left common carotid artery: Unremarkable. No occlusion or significant stenosis. No dissection. Left internal carotid artery: Unremarkable. Extracranial segment is patent with no occlusion or significant stenosis. No dissection. Left external carotid artery: Unremarkable. No occlusion. Left vertebral artery: Unremarkable. No occlusion or significant stenosis. No dissection. NECK: Bones/joints: Unremarkable. No acute fracture. Soft tissues: Unremarkable. Lung apices: Clear. CAROTID STENOSIS REFERENCE USING NASCET CRITERIA: % ICA stenosis = (1 - narrowest ICA diameter/diameter of distal cervical ICA) x 100. Mild - <50% stenosis. Moderate - 50-69% stenosis. Severe - 70-94% stenosis. Near occlusion - 95-99% stenosis. Occluded - 100% stenosis. IMPRESSION: No dissection, pseudoaneurysm, or hemodynamically significant stenosis of the carotid or vertebral arteries. Electronically signed by: Franco Reyes MD 02/15/24 22:23 PM
[2024-02-16 06:27] LABS: Basophils # (auto) 0.05 K/uL (0.00-0.20); Basophils % (auto) 0.7 %; Eosinophils # (auto) 0.36 K/uL (0.00-0.50); Eosinophils % (auto) 4.9 %; Hematocrit (blood only) 39.9 % (42.0-52.0); Immature Granulocytes # (auto) 0.02 K/uL (0.01-0.20); Immature Granulocytes % (auto) 0.3 %; Lymphocytes # (auto) 1.01 K/uL (1.20-3.40); Lymphocytes % (auto) 13.6 %; Mean Corpuscular Hemoglobin 30.2 pg (25.0-34.0); Mean Corpuscular Hgb Conc 35.1 g/dL (32.0-36.0); Mean Platelet Volume 12.8 fL (9.4-12.4); Monocytes # (auto) 0.83 K/uL (0.11-0.59); Monocytes % (auto) 11.2 %; Neutrophils # (auto) 5.13 K/uL (1.40-6.50); Neutrophils % (auto) 69.3 %; Platelet Count 135 K/uL (130-400); RDW Coefficient of Variation 12.6 % (11.5-14.5); RDW Standard Deviation 39.6 fL (36.4-46.3); Red Blood Count 4.64 M/uL (4.70-6.10)
[2024-02-16 06:48] LABS: BUN Creatinine Ratio 22.1 (10-20); Calcium 8.5 mg/dl (8.6-10.3); Est GFR (Non-African American) 94.9 ml/min; Potassium 4.1 mmol/L (3.5-5.1)
[2024-02-16 06:53] LABS: ANTI-Xa, UFH(UnfractionatedHep < 0.10 IU/ml (0.3-0.7)
[2024-02-16] MEDS: LOSARTAN POTASSIUM 25 MG TAB PO SCH (07:32)
[2024-02-16] MEDS: ALUMINUM/MAGNESIUM SUSP 30 ML UDC PO PRN (08:54)
[2024-02-16] MEDS: NITROGLYCERIN 2% OINTMENT 30GM TUBE EXT SCH (08:54)
[2024-02-16] MEDS: NITROGLYCERIN 2% OINTMENT 30GM TUBE EXT ONE ×2 (08:56→10:25)
[2024-02-16] MEDS: ALUMINUM/MAGNESIUM SUSP 30 ML UDC ONE (08:56)
[2024-02-16] MEDS: ISOSORBIDE MONO EXTENDED REL 30 MG TABCR PO SCH (10:25)
[2024-02-16] MEDS ORDERED: POLYETHYLENE (MIRALAX) 17 GM PACK PO PRN (10:35)
[2024-02-16] MEDS: POLYETHYLENE (MIRALAX) 17 GM PACK ONE (10:40)
--- NOTE | 2024-02-16 11:53 | Cardiology Progress Note ---
Date of Service February 16, 2024 Assessment & Plan (1) NSTEMI (non-ST elevated myocardial infarction): (2) Hypertension: (3) Sleep apnea: Plan 1. NSTEMI: Related to an ACS involving the right coronary artery. Status post PCI today. We will start dual anti-platelet therapy and continue high-dose atorvastatin. I think we can continue his current dose of losartan and carvedilol. 2. Hypertension: Blood pressure currently well controlled. Apparently an adverse reaction to nifedipine in the past. I think we can continue his outpatient regimen of losartan and hydrochlorothiazide. Carvedilol added. 3. Hyperlipidemia: High-dose atorvastatin added to his medical regimen. He had some concerns about mildly elevated liver function tests in the past. This has been attributed to hepatic steatosis. Perhaps this will improve his markers. Will need to follow-up with another set of liver function tests in the outpatient setting. 4. Transient visual disturbance and headache: Unclear etiology. Currently due to nitroglycerin. He does not appear to have had a significant cerebrovascular event. On dual anti-platelet therapy in any regard. I think if the patient is ambulatory and feeling well he could be discharged later today. I would recommend following medical regimen. Carvedilol 3.125 mg b.i.d. Atorvastatin 40 mg daily Losartan 25 mg daily Brilinta 90 mg b.i.d. Aspirin 81 mg daily To cardiac rehab in should follow-up in our clinic in the next couple of weeks. Admission and Anticipated Discharge Date Admission Date: February 13, 2024 Subjective This morning the patient reported an episode of spontaneous diet for and nausea. He was noted by the nursing status looks somewhat pale. Was transitioned back to bed where his symptoms gradually resolved. Yesterday afternoon he reported an episode of transient visual field disturbance prompting an evaluation for stroke. Visual field disturbance resolved quite quickly and does not return. He does report occasional pains in the calvarium. These seem to change locations. They are not positional in nature. At this point he has a headache subsequent to administration of nitroglycerin. He denies any recurrent chest pain. No breathing difficulty. He has been ambulatory around his room. No pain in the right hand. Review of Systems Review of Systems: Per HPI Physical Exam Physical Exam: The patient is alert and oriented. Mood and affect appeared normal. He answered all questions appropriately. Obese HEENT: Pupils are equal and reactive to light and accommodation. Extraocular movements are intact. The sclerae are anicteric. Neuro: Cranial nerves intact Lungs: Normal respiratory effort Cardiac: Heart demonstrates a regular rate and rhythm. Pulses: The patient has palpable radial pulses bilaterally that are equal in intensity Extremities: There was no evidence of hypoperfusion. There is no cyanosis or clubbing. There is no edema. Right hand well perfused. Skin: I did not appreciate any rashes on examination today. ENMT: Mallampati Class: IV Respiratory: normal respiratory effort Cardiovascular: Rate/Rhythm: regular rhythm and + bradycardic Results & Data Vital Signs (Past 12 Hours) Vital Signs Temp Pulse Pulse Resp BP Pulse Ox O2 Del Method 02/16/24 10:58 36.6 C 69 20 122/79 93 Room Air 02/16/24 07:46 57 L 02/16/24 07:12 36.5 C 65 19 125/87 95 Room Air 02/16/24 03:31 37.0 C 65 20 107/65 95 Room Air Laboratory Results Abnormal Lab Results 02/16/24 02/16/24 02/16/24 05:25 08:25 09:12 WBC 7.40 RBC 4.64 L Hgb 14.0 Hct 39.9 L MCV 86.0 MCH 30.2 MCHC 35.1 RDW Std Deviation 39.6 RDW Coeff of Giorgi 12.6 Plt Count 135 MPV 12.8 H Immature Gran % (Auto) 0.3 Neut % (Auto) 69.3 Lymph % (Auto) 13.6 [place] % (Auto) 11.2 Eos % (Auto) 4.9 Baso % (Auto) 0.7 Neut # (Auto) 5.13 Lymph # (Auto) 1.01 L [place] # (Auto) 0.83 H Eos # (Auto) 0.36 Baso # (Auto) 0.05 Immature Gran # (Auto) 0.02 Heparin Anti-Xa, Unfract < 0.10 L Sodium 135 L Potassium 4.1 Chloride 105 Carbon Dioxide 25 Anion Gap 5 BUN 19 Creatinine 0.86 Est Cr Clr Drug Dosing 125.0 Est GFR ( Amer) 110.0 Est GFR (Non-Af Amer) 94.9 BUN/Creatinine Ratio 22.1 H Glucose 100 H POC Glucose 108 H Calcium 8.5 L Troponin I High Sens 836.8 H* Diagnostic Findings Head CT, head and neck CTA performed 02/15/2024 all unremarkable. No evidence of intracranial hemorrhage, stroke or significant vascular occlusion or stenosis. PG Care Time/CCT Total # of Minutes Spent Total Time Spent with Patient: Total time spent is greater than 50% in coordination of care (as documented) at patient's floor/unit and/or counseling patient: Coding Level of Care Code 25989 SUB INP/OBS CARE 2/35MIN Diagnoses NSTEMI (non-ST elevated myocardial infarction) I21.4 Hypertension I10 Hypertension type: unspecified Sleep apnea G47.30 (2) Hypertension Hypertension type: unspecified Qualified Code(s): I10 - Essential (primary) hypertension
--- NOTE | 2024-02-16 15:59 | Hospitalist Progress Note ---
Date of Service February 16, 2024 Assessment & Plan (1) NSTEMI (non-ST elevated myocardial infarction): Plan: Symptoms, clinical presentation, EKGs, elevated troponin - all c/w NSTEMI. Peak HS troponin 3900. cardiac cath 02/[address] Lindsey and Dr Floyd: ""RCA -- large patulous vessel which produced PDA. It was diffusely diseased in its proximal portion with evidence of an acute coronary syndrome and thrombus. There was a discrete stenosis in the proximal portion estimated at 90%. Some luminal regularities prior to development of another discrete 90% stenosis in the mid vessel." Culprit vessel for NSTEMI --> nearly 100% occluded RCA s/p angioplasty with stents x 2. Cont coreg and lipitor. Cont losartan. DAPT - Cont asa 81mg daily and brilinta. Counseled on not stopping DAPT early/running out because of risk of stent thrombosis, severe heart attack Discussed with Dr. Floyd and added imdur in case episode this am was anginal Echo with preserved EF and preserved wall motion. Lipid parameters - LDL 87, HDL 38, Trigs 64. EKGs with inferior wall ST depressions c/w ischemia from the occluded RCA. Episode of diaphresis AM of 02/15 - EKG tracing reviewed: sinus, incomplete RBBB, unchanged, tele reviewed - no arryhthmia, trop continued downtrend (800s) was hypertensive ordered nitro paste then changed to Imdur, dose of maalox, discussed with Dr. Lindsey and Dr. Floyd. Could have been anginal or vasovagal. Discussed discharge tonight but and daughter concerned that symptoms will recur, plan for discharge home in am (2) CAD (coronary artery disease): (3) Visual field cut: Plan: Patient had several minutes of bitemporal visual field loss. This spontaneously resolved. However, the visual disturbance was then followed by neck pain, occipital pain, and pain radiating to the right scalp and right frontal region. The visual field cut is concerning for possible embolic event from his cardiac catheterization. He does not have any migraine history to suggest complex migraine. The posterior neck pain could be referred pain from a [employer] event. Can't rule out dissection of his neck vessels but this is unlikely. I recommended we obtain MRI brain to rule out acute stroke. Patient declined such stating he has severe claustrophobia and wouldn't be able to complete the study. I offered him sedation (ativan, etc) but again he declined the MRI brain. CT head and CTAs head/neck obtained and were unremarkable. -is on appropriate medical therapy if this was a periprocedural TIA as outlined above vs complex migraine -symptoms have not recurred (4) Neck pain: Plan: see #3 above resolved (5) Hypertension: Plan: controlled cont coreg 3.125mg BID cont losartan 25mg daily HCTZ has been stopped (6) Sleep apnea: Plan: no on Rx for such was on CPAP in the past (7) Fatty liver: Plan: history of such elevated ast/alt likely due to fatty liver watch LFTs with initiation of statin (8) History of pulmonary embolism: Plan: >10 years ago per records (9) Morbid obesity with BMI of 40.0-44.9, adult: Plan: BMI ~40 (10) Prediabetes: Plan: hba1c 6% will counseling specialist patient on this cardiac rehab post-discharge will help with this issue Plan DVT proph - currently ambulatory and on DAPT Pulmonary nodules seen on CTA, [address] recommended updated at bedside x 2 today Admission and Anticipated Discharge Date Admission Date: February 13, 2024 Subjective No further episodes of vision disturbance, headache resolved This AM had bed bath then ate breakfast, following that had episode of diaphoresis associated with mild chest pressure and dyspnea, back into bed, had resolved by time I arrived on unit Seen again in afternoon, no further symptoms, had been up oob to bathroom, ate lunch Physical Exam 2 Physical Exam: PHYSICAL EXAMINATION Last 24h vital signs reviewed, see documentation in flowsheet General: comfortable appearing, no distress HEENT: Normocephalic, atraumatic, pupils round and equal, sclerae anicteric, no conjunctival injection, moist mucus membranes Lungs: Normal respiratory effort. Clear to auscultation bilaterally. No RRW Heart: Regular rate and rhythm, no murmurs. No JVD Abdomen: Soft, nontender, nondistended. Bowel sounds present. Extremities: Warm, dry, well-perfused. No extremity edema. right wrist access site clean dry and intact, no swelling or hematoma Neuro: Alert and oriented x 4, face symmetric, moves 4 extremities well Psych: Normal affect and behavior Results & Data Results & Data Vital Signs (Past 12 Hours) Vital Signs Temp Pulse Pulse Resp BP Pulse Ox O2 Del Method 02/16/24 10:58 36.6 C 69 20 122/79 93 Room Air 02/16/24 07:46 57 L 02/16/24 07:12 36.5 C 65 19 125/87 95 Room Air Laboratory Results 02/16/24 05:25 02/16/24 05:25 PG Care Time/CCT Total # of Minutes Spent Total Time Spent with Patient: Total time spent is greater than 50% in coordination of care (as documented) at patient's floor/unit and/or counseling patient: Coding Level of Care Code 17574 SUB INP/OBS CARE 3/50MIN Diagnoses NSTEMI (non-ST elevated myocardial infarction) I21.4 CAD (coronary artery disease) I25.10 Visual field cut H53.40 Neck pain M54.2 Hypertension I10 Sleep apnea G47.30 Fatty liver K76.0 History of pulmonary embolism Z86.711 Morbid obesity with BMI of 40.0-44.9, adult E66.01; Z68.41 Prediabetes R73.03
--- NOTE | 2024-02-16 17:19 | Electrocardiogram Report ---
Test Reason : Blood Pressure : / mmHG Vent. Rate : 070 BPM Atrial Rate : 070 BPM P-R Int : 164 ms QRS Dur : 108 ms QT Int : 394 ms P-R-T Axes : 053 -35 -08 degrees QTc Int : 425 ms Normal sinus rhythm Left axis deviation Incomplete right bundle branch block Minimal voltage criteria for LVH, may be normal variant Abnormal ECG When compared with ECG of 15-FEB-2024 11:19, No significant change was found Confirmed by Huy Lindsey ([id number]) on 02/16/2024 5:18:34 PM Referred By: REFERRED SELF Confirmed By:Reginald Lindsey
--- NOTE | 2024-02-18 07:04 | Discharge Summary ---
Date of Service February 17, 2024 Admission HPI Per Admitting Provider Deniz is a 58-year-old male with PMH of HTN, sleep apnea, and plantar fasciitis. He presented for "ripping" sternal chest pain x 2-3 hours that developed while working outside on 02/12. Patient notes that he was dragging branches outside of discharge, when the pain came on gradually, but then became unbearable. Radiation to the left shoulder and jaw. Numbness and tingling down the left arm. Patient reports profuse sweating so bad that he "soaked his shirt". Became pale. He felt like his "chest cavity was breaking open". After sitting down, the pain eventually alleviated. Also alleviated by morphine and Nitro-Bid in the ED. Patient reports this has been an ongoing issue over the past couple months, and he is unable to tell if it is strictly at rest versus with exertion. He also notes that he has been having SOB both at rest and with exertion. Patient had PFTs done 1 week ago with results pending; former tobacco cigarette smoker but quit 12 years ago. Of note, the patient also endorses "burning with breathing", which he attributes to potential acid reflux. Worse when being out in the cold he was supposed to start on Pepcid but has not done so yet. Last stress test was 1 year ago. Patient follows with Dr. Umesh Lopez at [facility] cardiology. He reports that he has been taking his losartanHCTZ regularly, and that he was recently tried on nifedipine 60 mg starting on , but only took 2 days of it as it caused him to swell up and flushing. He also notes that he ran out of his aspirin 81 mg 2 days ago, and has not been taking it the past 2 days. No other change in medications. He was post to have a coronary CT scan for calcium score in March 2024. Family history of cardiac disease; father had TN and quadruple bypass in his 60s. No personal history of TN, or CVA, but he does report he had a PE in the past; unclear if it was provoked or unprovoked; not currently on blood thinners. Patient is hypertensive at 142/107 at time of admission; vitals otherwise stable. Chest pain-free at time of admission; not reproducible to palpation. ED course: Morphine 4 mg IV Toradol 10 mg IV Zofran 4 mg IV Aspirin 324 mg p.o. Nitro-Bid 2% 1 inch ROS: Patient endorses intermittent chest pain, numbness/tingling going down the left arm, tightness in jaw and left shoulder, dizziness/lightheadedness, blurry vision x 2 in the past month, pleuritic CP, productive cough and dry cough, hemoptysis (always while brushing teeth x 3-4 episodes), and nausea from pain. Patient denies fever, chills, night-sweats, [place], chest palpitations, abdominal pain, vomiting, diarrhea, urinary s/s, burning with urination, blood in the urine/stool, and N/T in legs. Principal Diagnosis Non-ST elevation TN Discharge Exam PHYSICAL EXAMINATION Last 24h vital signs reviewed, see documentation in flowsheet General: comfortable appearing, no distress HEENT: Normocephalic, atraumatic, pupils round and equal, sclerae anicteric, no conjunctival injection, moist mucus membranes Lungs: Normal respiratory effort. Clear to auscultation bilaterally. No RRW Heart: Regular rate and rhythm, no murmurs. No JVD Abdomen: Soft, nontender, nondistended. Bowel sounds present. Extremities: Warm, dry, well-perfused. No extremity edema. Neuro: Alert and oriented x 4, face symmetric, moves 4 extremities well Psych: Normal affect and behavior Discharge Data Allergies Allergy/AdvReac Type Severity Reaction Status Date / Time nifedipine Allergy Severe Flushing Verified 02/10/24 15:22 lisinopril AdvReac Mild Cough Verified 01/27/24 11:37 Consultations 02/13/24 14:08 ED Decision to Admit Stat 02/13/24 16:43 Consult Cardiology Routine Procedures Performed Operation Date: 02/15/24 08:00 Actual Procedures p Cineradiography w/Routine Exam - Huy Lindsey MD p Cath, Left with Cors and Vent - Huy Lindsey MD s Drug Eluting Stent SGl Vessel - Elijah Floyd MD, PhD s Perc Salgado Coronary Lithotripsy - Elijah Floyd MD, PhD Ordered Studies 02/13/24 12:33 CT angio chest dissec wo/w con Stat 02/15/24 06:55 CL Cath Imgs for PACS use only Routine 02/15/24 19:13 CT angio neck with con Stat CT head/brain wo con Stat 02/15/24 19:57 CTA head w con [CT angio head w con] Stat Chest X-Ray 02/13/24 11:48 XR chest 1V not portable CLINICAL HISTORY: Chest pain, nonspecific COMPARISON STUDY: Chest radiograph January 27, 2024. FINDINGS: Lung volumes are normal. Lungs are clear. There is no pneumothorax or pleural effusion. Cardiac size is stable. Mediastinal contours are normal. There is no evidence for pulmonary edema. IMPRESSION: No acute cardiopulmonary findings. ACT 112: Negative or not required by law. Electronically signed by: Frandy Mccrary M.D. 02/13/2024 12:40 PM Chest CTA 02/13/24 12:33 CT ANGIOGRAPHY OF THE CHEST DISSECTION PROTOCOL CLINICAL HISTORY: Chest pain radiating to back. Evaluate for aortic dissection. COMPARISON STUDY: Chest radiographs January 19, 2024 and February 13, 2024. TECHNIQUE: Before and following the IV administration of 119 mL of Optiray, helical axial images of the chest were obtained. Maximal intensity projections and sagittal and coronal reformats were viewed on an independent 3D workstation. IV contrast was administered without complication. Automated exposure control was utilized for the study. A dose lowering technique was utilized adhering to the principles of ALARA. CT DOSE: 1989.37 mGy.cm FINDINGS: The caliber of the thoracic aorta is normal. There is no intramural hematoma or thoracic aortic dissection. There is extensive coronary artery calcification. There is no pericardial effusion. Borderline cardiomegaly. No pneumothorax or pleural effusion is present. There is no consolidation to suggest pneumonia. Multiple solid noncalcified pulmonary nodules are noted. The largest is a 7 mm left lower lobe nodule on image 147 of 253 and a 7 mm subpleural right middle lobe nodule on image 166. No acute fractures within the bony thorax are noted. Visualized portions of the upper abdomen are unremarkable. IMPRESSION: 1. No thoracic aortic dissection. No pulmonary emboli. No acute intrathoracic findings. 3. Mild cardiomegaly. Extensive coronary artery calcification. 3. Several noncalcified pulmonary nodules measuring up to 7 mm. These are likely benign. A follow up chest CT in 6 months to ensure stability is recommended. ACT 112: Negative or not required by law. Electronically signed by: Frandy Mccrary M.D. 02/13/2024 1:[address] 02/15/24 19:13 Exam(s): CT HEAD Without Contrast EXAM: CT Head Without Intravenous Contrast CLINICAL HISTORY: Reason for exam: b/l visual field cut, occipital headache. TECHNIQUE: Axial computed tomography images of the head/brain without intravenous contrast. CTDI is 34.62 mGy and DLP is 624.41 mGy-cm. Automated exposure control was utilized for the study. A dose lowering technique was utilized adhering to the principles of ALARA. COMPARISON: CT head 11/04/2011. FINDINGS: Brain: Unremarkable. No hemorrhage. No significant white matter disease. No edema. Ventricles: Unremarkable. No ventriculomegaly. Bones/joints: Unremarkable. No acute fracture. Soft tissues: Unremarkable. Sinuses: Unremarkable as visualized. Mastoid air cells: Unremarkable as visualized. No mastoid effusion. IMPRESSION: No intracranial hemorrhage or other acute intracranial abnormality. Electronically signed by: Franco Reyes MD 02/15/24 22:17 PM Neck CTA 02/15/24 19:13 Exam(s): CTA NECK With Contrast IV Amt: 118ML OPTIRAY 320 EXAM: CT Angiography Neck With Intravenous Contrast CLINICAL HISTORY: Reason for exam: neck pain, occipital h/a; ro dissection. TECHNIQUE: Routine carotid CT angiography protocol was performed with intravenous contrast. NASCET criteria using the distal ICAs for comparison were used for evaluation of stenoses. CTDI is 14.02 mGy and DLP is 561.55 mGy-cm. Automated exposure control was utilized for the study. A dose lowering technique was utilized adhering to the principles of ALARA. MIP reconstructed images were created and reviewed. CONTRAST: Patient received 118ML OPTIRAY 320 of IV contrast COMPARISON: None. FINDINGS: VASCULATURE: Right common carotid artery: Unremarkable. No occlusion or significant stenosis. No dissection. Right internal carotid artery: Unremarkable. Extracranial segment is patent with no occlusion or significant stenosis. No dissection. Right external carotid artery: Unremarkable. No occlusion. Right vertebral artery: Unremarkable. No occlusion or significant stenosis. No dissection. Left common carotid artery: Unremarkable. No occlusion or significant stenosis. No dissection. Left internal carotid artery: Unremarkable. Extracranial segment is patent with no occlusion or significant stenosis. No dissection. Left external carotid artery: Unremarkable. No occlusion. Left vertebral artery: Unremarkable. No occlusion or significant stenosis. No dissection. NECK: Bones/joints: Unremarkable. No acute fracture. Soft tissues: Unremarkable. Lung apices: Clear. CAROTID STENOSIS REFERENCE USING NASCET CRITERIA: % ICA stenosis = (1 - narrowest ICA diameter/diameter of distal cervical ICA) x 100. Mild - <50% stenosis. Moderate - 50-69% stenosis. Severe - 70-94% stenosis. Near occlusion - 95-99% stenosis. Occluded - 100% stenosis. IMPRESSION: No dissection, pseudoaneurysm, or hemodynamically significant stenosis of the carotid or vertebral arteries. Electronically signed by: Franco Reyes MD 02/15/24 22:23 PM Head CTA 02/15/24 19:57 Exam(s): CTA HEAD With Contrast IV Amt: 118ml optiray 320 EXAM: CT Angiography Head With Intravenous Contrast CLINICAL HISTORY: Reason for exam: vision changes. TECHNIQUE: Axial computed tomographic angiography images of the head with intravenous contrast. CTDI is 34.62 mGy and DLP is 624.41 mGy-cm. Automated exposure control was utilized for the study. A dose lowering technique was utilized adhering to the principles of ALARA. MIP reconstructed images were created and reviewed. CONTRAST: Patient received 118ml optiray 320 of IV contrast COMPARISON: CT head 02/15/2024. FINDINGS: Right internal carotid artery: No acute findings. Intracranial segment is patent with no significant stenosis. No aneurysm. Right anterior cerebral artery: Unremarkable. No occlusion or significant stenosis. No aneurysm. Right middle cerebral artery: Unremarkable. No occlusion or significant stenosis. No aneurysm. Right posterior cerebral artery: Unremarkable. No occlusion or significant stenosis. No aneurysm. Right vertebral artery: Unremarkable as visualized. Left internal carotid artery: No acute findings. Intracranial segment is patent with no significant stenosis. No aneurysm. Left anterior cerebral artery: Unremarkable. No occlusion or significant stenosis. No aneurysm. Left middle cerebral artery: Unremarkable. No occlusion or significant stenosis. No aneurysm. Left posterior cerebral artery: Unremarkable. No occlusion or significant stenosis. No aneurysm. Left vertebral artery: Atherosclerosis of the V4 segment of the left vertebral artery. Basilar artery: Unremarkable. No occlusion or significant stenosis. No aneurysm. IMPRESSION: No large vessel occlusion. Electronically signed by: Franco Reyes MD 02/15/24 22:19 PM 02/16/24 05:25 02/16/24 05:25 Hospital Course (1) NSTEMI (non-ST elevated myocardial infarction): Symptoms, clinical presentation, EKGs, elevated troponin - all c/w NSTEMI. Peak HS troponin 3900. cardiac cath 3/[address] Lindsey and Dr Floyd: ""RCA -- large patulous vessel which produced PDA. It was diffusely diseased in its proximal portion with evidence of an acute coronary syndrome and thrombus. There was a discrete stenosis in the proximal portion estimated at 90%. Some luminal regularities prior to development of another discrete 90% stenosis in the mid vessel." Culprit vessel for NSTEMI --> nearly 100% occluded RCA s/p angioplasty with stents x 2. Cont coreg and lipitor. Cont losartan. DAPT - Cont asa 81mg daily and brilinta. Counseled on not stopping DAPT early/running out because of risk of stent thrombosis, severe heart attack Discussed with Dr. Floyd and added imdur in case diaphoresis episode 02/15 was anginal - trops continued to trend downward, no recurrence of symptoms Echo with preserved EF and preserved wall motion. Lipid parameters - LDL 87, HDL 38, Trigs 64. EKGs with inferior wall ST depressions c/w ischemia from the occluded RCA. (2) CAD (coronary artery disease): (3) Visual field cut: Patient had several minutes of bitemporal visual field loss subsequent to procedure. This spontaneously resolved. However, the visual disturbance was then followed by neck pain, occipital pain, and pain radiating to the right scalp and right frontal region. The visual field cut is concerning for possible embolic event from his cardiac catheterization. He does not have any migraine history to suggest complex migraine. The posterior neck pain could be referred pain from a JAMMER HOOKER event. Can't rule out dissection of his neck vessels but this is unlikely. My colleague recommended we obtain MRI brain to rule out acute stroke. Patient declined such stating he has severe claustrophobia and wouldn't be able to complete the study. I offered him sedation (ativan, etc) but again he declined the MRI brain. CT head and CTAs head/neck obtained and were unremarkable. -is on appropriate medical therapy if this was a periprocedural TIA as outlined above vs complex migraine -symptoms have not recurred (4) Hypertension: controlled on meds outlined above HCTZ has been stopped (5) Sleep apnea: no on Rx for such was on CPAP in the past (6) Fatty liver: history of such elevated ast/alt likely due to fatty liver watch LFTs with initiation of statin (7) History of pulmonary embolism: >10 years ago per records (8) Morbid obesity with BMI of 40.0-44.9, adult: BMI ~40 (9) Prediabetes: hba1c 6% counseled on diet, weight loss, exercise, follow up with PCP cardiac rehab post-discharge will help with this issue Plan Pulmonary nodules seen on CTA, [address] recommended - discussed with Mr. Johnson day of discharge Total Time Total Time Spent Total Time Spent (In Minutes): I personally spent: 40 minutes today on clinical care activities including: reviewing chart notes and vital signs reviewing labs examining and counseling the patient counseling the patient's family writing orders, discharge instructions documentation Discharge Plan Discharge Items Patient Disposition: Home - Self-Care Reason For Visit: RIPPING SUBSTERNAL CHEST PAIN W/ RAD Discharge Diagnosis: NSTEMI Coronary artery disease status post PCI (stent) Benign essential hypertension Atherogenic dyslipidemia Condition on Discharge: Fair Activity: Per Instructions section Non-emergency contact: International Trade Manager Call non-emergency contact if: you have any medication questions, your symptoms worsen, your pain is not controlled, you have a fever, your wound has increased redness and your wound has increased drainage Follow-up/Referrals: Lo Jose MD [Primary Care Provider] - 02/22/24 11:20 am Diet: Heart Healthy Addtl Attending Provider Instructions: ACTIVITY RECOMMENDATIONS: It is common to feel weak and fatigue for a few days. * Do not drive or operate any motorized equipment for the next three days. * Limit stair usage (2 or 3 trips a day only) for the next three days. * Do not lift anything heavier than 10 pounds for the next three days. * Do not engage in vigorous exercise or any sports for the next five days. * You may shower the day after your procedure, but do not immerse the area for three days. Cleanse the site gently with soap and water. SPECIAL CARE INSTRUCTIONS: * You may replace the pressure dressing or band-aid the morning after the procedure. * After your procedure, it is normal to have a small bruise or small lump at the site. Examine your site daily for any change in the bruise or lump, redness, swelling, drainage or numbness. Notify your doctor if any change. BLEEDING: * If there is a small amount of bleeding at the site, lie down and apply firm pressure with a clean cloth for ten minutes. When the bleeding stops, lie quietly keeping the procedure limb straight for six hours. Notify your doctor as soon as possible. * If the bleeding does not stop after ten minutes or if there is a large amount of bleeding or spurting, call 911 immediately. Continue to lie down and hold firm pressure until help arrives. SKIN IRRITATION: * You may experience some redness and/or swelling in the area where radiation was administered. If any skin irritation occurs, please contact your family physician. FOLLOW UP VISIT: Keep any scheduled doctor appointments. Addtl Lithopress Operator Provider Instructions: Discharge instructions from internal medicine: Do not stop aspirin + Brilinta unless directed to by your laborer (or in an emergency with consultation by a laborer) - stopping these prematurely could cause a severe heart attack because the stents could clog up Your hemoglobin A1c test was mildly elevated, which indicates a "pre-diabetic" state. At this range the best intervention is improving your diet and exercise so that you lose weight. Follow up in primary care and with laborer to see when it is safe to start an exercise program. Reducing sugar and "white" carbohydrate intake and avoiding any drinks containing sugar will help. Focus on vegetables, lean meats and moderate amount of whole grains. Mediterrenean diets have been most successful and are heart- healthy You had a CTA test of your chest on admission that ruled out things like a blood clot in your lungs and tear in an artery, for example. There was an incidental finding of a few pulmonary nodules, however. these are common and may simply be old scars. It is important to have a repeat chest CT in about 6 months to make sure that these nodules are not growing or changing. -follow up with your primary care for this Pending Studies at Discharge: No Stand-Alone Forms: My [facility] [employer], Smoking Cessation Medications and DC Order Prescriptions: New Brilinta 90 mg Tablet 90 mg PO BID Qty: 60 11RF atorvastatin 40 mg Tablet 40 mg PO QAM Qty: 90 3RF isosorbide mononitrate 30 mg Tablet Extended Release 24 Hr 30 mg PO QAM Qty: 90 3RF carvedilol 3.125 mg Tablet 3.125 mg PO BIDM Qty: 120 3RF losartan 25 mg Tablet 25 mg PO DAILY@2000 Qty: 90 3RF nitroglycerin [Nitrostat] 0.4 mg Tablet, Sublingual 0.4 mg sublingual Q5M PRN (Reason: chest pain) Qty: 30 3RF Continued aspirin [Adult Low Dose Aspirin] 81 mg tablet,delayed release (DR/EC) 81 mg PO DAILY Held ibuprofen See Rx Instructions .ROUTE .COMPLEX PRN (Reason: Pain) Hold Instructions: Resume on 03/01/24. Discuss with primary care provider. Rx Instructions: As directed Discontinued losartan-hydrochlorothiazide 100-25 mg tablet 1 tab PO HS Discharge Orders: Discharge Order (Routine); Ordered 02/17/24 Ordered By: Mary So/Other Patient Handouts: Prediabetes, 5 Steps for Eating Healthier Admission Data Admit Date/Time: 02/13/24 14:45 Attending Provider: Mary Metz Admit Provider: Cong Han Primary Care Provider: Lo Jose V. Other Providers: Cong Han; Aryan Walker Other Interventions: Discharge Summary Assessment (RN) Last Done: 02/17/24 09:03 Coding Level of Care Code 19672 INP/OBS DISCH >30 MIN Diagnoses NSTEMI (non-ST elevated myocardial infarction) I21.4 CAD (coronary artery disease) I25.10 Visual field cut H53.40 Hypertension I10 Sleep apnea G47.30 Fatty liver K76.0 History of pulmonary embolism Z86.711 Morbid obesity with BMI of 40.0-44.9, adult E66.01; Z68.41 Prediabetes R73.03
== END 2024-02-17 10:05 | disposition home or self-care (01) | DRG 324 ==
LOC: ED 11:34 → 4W 14:45 → SUATTDRO 14:45 → INTOOBSV 14:45 → 4W 16:16